=== PATIENT | female | born 1980 | race Hispanic/Latino ===

== ENCOUNTER 2023-10-09 23:39 | Inpatient (IN) | payer MEDICAID, SELFPAY ==
[2023-10-09 12:20] VITALS: BP 135/83; BMI 44.7
[2023-10-09 12:49] LABS: HCG, Serum Qualitative Screen Negative
[2023-10-09 12:51] LABS: ALT (SGPT) 11 U/L (0-35); AST (SGOT) 17 U/L (14-36); Albumin 3.8 g/dl (3.5-5.0); Alkaline Phosphatase 74 U/L (38-126); Blood Urea Nitrogen 11 mg/dl (7-17); Calcium 9.3 mg/dl (8.4-10.2); Carbon Dioxide 26 mmol/L (22-30); Chloride 105 mmol/L (98-107); Estimated Creatinine Clearance > 125 ml/min; Glucose 106 mg/dl (70-99); Lipase 89 U/L (23-300); Potassium 3.6 mmol/L (3.5-5.1); Sodium 138 mmol/L (135-145); Total Bilirubin 0.8 mg/dl (0.2-1.3); Total Protein 7.3 g/dl (6.3-8.2); eGFR > 60.00
[2023-10-09 12:55] LABS: % Basophils 0.5 % (0-2); % Eosinophils 0.8 % (0-6); % Immature Granulocytes 0.4 % (0-0.5); % Lymphocytes 19.7 % (20.5-51.1); % Neutrophils 71.6 % (42.2-75.2); Absolute Eosinophils 0.1 10^3/uL (0-0.7); Absolute Lymphocytes 1.6 10^3/uL (1.2-3.4); Absolute Monocytes 0.6 10^3/uL (0.1-0.6); Absolute Neutrophils 5.9 10^3/uL (1.4-6.5); Hematocrit 31.1 % (37.0-47.0); Hemoglobin 9.5 g/dL (12.0-16.0); Mean Corp Hgb Conc. 30.5 g/dL (33.0-37.0); Mean Corpuscular Hgb 20.7 pg (27.0-31.0); Mean Corpuscular Volume 67.8 fL (81.0-99.0); Nucleated Red Blood Cells % 0 %; Platelet Count 325 10^3/uL (130-400); Red Blood Cell Count 4.59 10^6/uL (4.20-5.40); Red Cell Dist. Width 32.3 % (11.5-14.5); White Blood Cell Count 8.2 10^3/uL (4.8-10.8)
[2023-10-09 12:58] LABS: Anisocytosis Slight; Microcytosis Slight; Normal RBC Morphology No; Target Cells 1+
--- NOTE | 2023-10-09 14:28 | ED.GENMED ---
History of Present Illness
General
Chief Complaint: Abdominal Pain
Source: patient
Exam Limitations: none
Time Seen by Provider: 10/09/23 14:18
Nursing documentation reviewed up to this point in time: agreed with
History of Present Illness
History of Present Illness:
Patient to ED with LLQ abdominal pain. Pain started this AM. Denies fever/chills, n/v/d. Last BM 2 days ago. States she takes oral iron for anemia and has had constipation in the past. This feels different. Brought to ED by family for eval.
Past History
Past History
ED Past Medical History: Other (anemia)
ED Past Surgical History: Cholecystectomy and
Review of Systems
Review of Systems
Allergies reviewed?: Yes
All Other Systems: ROS reviewed and negative except as documented in HPI and ROS
Constitutional: Reports no symptoms
EENT: Reports no symptoms
Respiratory: Reports no symptoms
Cardiac: Reports no symptoms
ABD/GI: Reports abdominal pain (LLQ)
: Reports no symptoms
Musculoskeletal: Reports no symptoms
Skin: Reports no symptoms
Neurological: Reports no symptoms
Psychiatric: Reports no symptoms
Phy Exam
General Physical Exam
General Presentation: well appearing and mild distress
General age: appears stated age
General Skin: warm and dry
General Habitus: normal
General Mental: alert
Gastrointestinal Exam
Gastrointestinal Exam: normal bowel sounds, soft and no pulsatile mass
Palpation: left upper quadrant: No tenderness, left lower quadrant: Moderate tenderness, right upper quadrant: No tenderness and right lower quadrant: No tenderness
Musculoskeletal Exam
Musculoskeletal Exam: full ROM
Skin Exam
Skin Exam: normal color, warm/dry and no rash
Psychiatric Exam
Psychiatric Exam: normal mood/affect
Course
Orders/Labs/Results
Orders:
Orders
10/09/23 12:23
Test Result ONCE
10/09/23 12:26
Complete Blood Count/With Diff Urgent
Comprehensive Metabolic Panel Urgent
HCG, Serum Qualitative Screen Urgent
Comment: Notify provider if positive test present
Lipase Urgent
10/09/23 14:26
Obstruct Series W/PA Chest [CR Obstruct Series W/pa Chest] Urgent
Comment:
Reason For Exam: LLQ pain
10/09/23 15:04
Urinalysis Reflex To Culture Urgent
Date Specimen was Collected: 10/09/23
Time Specimen was Collected: 14:35
Urine Microscopic Reflex Cult Urgent
Urine Culture Urgent
ISABELLE Source: U
Specimen Description:
Date Specimen was Collected: 10/09/23
Time Specimen was Collected: 14:35
10/09/23 15:25
CT Abd/pel W Iv And Oral Contr Urgent
Comment:
Reason For Exam: LLQ pain
Iohexol [Omnipaque] See Protocol PO NOW STA
10/09/23 15:26
0.9% Sodium Chloride 1000 ml [Nss] 1,000 ml IV BOLUS
10/09/23 18:41
Pelvis (Non Obstetric) US [US Pelvis Only (non-obstetric)] Urgent
Comment:
Reason For Exam: LLQ pain, adenexal mass
10/09/23 18:45
Ondansetron Injectable [Zofran] 4 mg .ROUTE .STK-MED ONE
10/09/23 18:46
HYDROmorphone [Dilaudid] 0.5 mg .ROUTE .STK-MED ONE
HYDROmorphone [Dilaudid] 0.5 mg IV NOW STA
Ondansetron Injectable [Zofran] 4 mg IV NOW STA
10/09/23 21:16
CA 125 Urgent
CA 19-9 [S] Urgent
CEA Urgent
10/09/23 21:30
Complete Blood Count/With Diff Urgent
10/09/23 22:49
Piperacillin/Tazo 3.375 Gram [Zosyn] 3.375 gram in 50 ml IV NOW
10/09/23 22:55
ELECTROPHYSIOLOGY NURSE PRACTITIONER CONSULT Urgent
Consulting Provider: Anne Marie Jang
Was physician already notified: Yes
10/09/23 23:18
Type+Screen Urgent
10/09/23 23:35
Admit/Transfer Patient As Directed
Co-Sign Provider:
Level of Care: Inpatient admission
Assign to:: Medical/Surgical
Physician / Group: eladia
Diagnosis: ovarian mass
Reason for Hospitalization: ovarian mass
Expected length of stay greater than two midnights?: Yes
ELOS- Estimated Length of Stay in days: 2
I certify the patient meets the requirements for IP care: Yes
Code Status As Directed
Resuscitation Status: Full Code
10/10/23 00:14
Acetaminophen [Tylenol] 650 mg PO Q4HPRN PRN
HYDROmorphone [Dilaudid] 0.5 mg IV Q4HPRN PRN
10/10/23 00:14
Activity As Directed
Activity Level: As Tolerated
Vital Signs As Directed
Frequency: Per unit guidelines
DX Deep Vein Thrombosis Video Routine
10/10/23 05:59
Complete Blood Count/With Diff IN AM
Comprehensive Metabolic Panel IN AM
Abnormal Lab Results
10/09/23 10/09/23 10/09/23
12:26 15:04 21:30
RBC 3.64 L 10^6/uL
(4.20-5.40)
Hgb 9.5 L g/dL 7.5 L D g/dL
(12.0-16.0) (12.0-16.0)
Hct 31.1 L % 23.9 L %
(37.0-47.0) (37.0-47.0)
MCV 67.8 L fL 65.7 L fL
(81.0-99.0) (81.0-99.0)
MCH 20.7 L pg 20.6 L pg
(27.0-31.0) (27.0-31.0)
MCHC 30.5 L g/dL 31.4 L g/dL
(33.0-37.0) (33.0-37.0)
RDW 32.3 H % 32.3 H %
(11.5-14.5) (11.5-14.5)
Lymphocytes % 19.7 L %
(20.5-51.1)
Glucose 106 H mg/dl
(70-99)
Ur Occult Blood Reflex 4+ A
(Negative)
Leukocyte Esterase Rfl 2+ A
(Negative)
Urine RBC >100 A /HPF
(0-2)
Urine WBC (Reflex) 21-25 A /HPF
(0-5)
Urine Bacteria (Reflex) Few A
(Negative)
Urine Albumin (Reflex) 1+ A
(Neg - Trace)
Crossmatch IS Only
10/09/23
23:18
RBC
Hgb
Hct
MCV
MCH
MCHC
RDW
Lymphocytes %
Glucose
Ur Occult Blood Reflex
Leukocyte Esterase Rfl
Urine RBC
Urine WBC (Reflex)
Urine Bacteria (Reflex)
Urine Albumin (Reflex)
Crossmatch IS Only See Detail
10/09/23 21:30
10/09/23 12:26
Vital Signs
Initial and Last Documented VS:
Initial Vital Signs
Temp Pulse Resp BP Pulse Ox
99.2 F 80 16 135/83 98
10/09/23 12:20 10/09/23 12:20 10/09/23 12:20 10/09/23 12:20 10/09/23 12:20
Last Documented Vital Signs
Temp Pulse Resp BP Pulse Ox
97.0 F 75 20 128/73 95
10/12/23 19:50 10/12/23 19:48 10/12/23 19:48 10/12/23 19:48 10/12/23 19:48
*Radiology
Radiology exam reviewed: radiology read reviewed (Large complex left adnexal mass measuring 10 cm AP by 8.6 cm transverse by 10 cm craniocaudal. There is a peripheral thickened soft tissue rim measuring approximately 1.5 cm in thickness, with
slightly complex central region of diminished attenuation measuring approximately 9.7 cm. Mild to moderate)
*Pulse Oximetry
Patient hypoxic: no
*Critical Care Note
Total Time (30-74mins, 75-104mins- exclusive of procedures): Not Applicable
Update Note
Update Note:
CT report reviewed. 'Large complex left adnexal mass measuring 10 cm AP by 8.6 cm transverse by 10 cm craniocaudal. There is a peripheral thickened soft tissue rim measuring approximately 1.5 cm in thickness, with slightly complex central region of
diminished attenuation measuring approximately 9.7 cm. Mild to moderate adjacent and surrounding soft tissue stranding noted. The posterior margin, there are nodular soft tissue structures measuring probably 2.9 cm and 3.1 cm (image 68 series 201
and image 70 series 201). Suspicious for adenopathy.' Will send for US. Discussed CT findings with patient.
US report received: 'Large left ovarian mass measuring 9.1 x 9.8 x 8.1 cm, with complex cystic and/or solid appearing components. Neoplasm to be excluded. Left ovarian blood flow documented without evidence to suggest torsion at this time. Complex
cyst of the right ovary measuring up to 5.7 cm. Right ovarian blood flow documented.No free pelvic fluid.
Dr. Ianieri notified of findings via tiger text, in to see patient. WIll perform pelvic exam, uterine bx bedside. CBC rechecked. Hgb now 7.5. Will admit to hospitalist service.
UA reflecting UTI. IV zosyn given in dept.
ED Attending Note
-
Portions of this chart may have been created with voice recognition software.� Occasional wrong word or��sound alike� substitutions may have occurred due to the inherent limitations of voice recognition software.
Discharge Plan
Departure
Patient Disposition: Admit
Date of Disposition: 10/09/23
Time of Disposition: 22:54
Presentation/result/management discussed w/ accepting MD/DO: Hospitalist
Patient with high blood pressure during this ER visit?: No
Condition: Fair
Covid-19: Not Applicable
Discharge Problem:
Anemia, Adnexal mass, UTI (urinary tract infection)
Interventions
Interventions:
*Risk Screen - Suicide Last Done: 10/09/23 12:20
*General Assessment Last Done: 10/09/23 14:37
*Neglect/Abuse Screening Last Done: 10/09/23 12:20
ED- Fall Risk Assessment Last Done: 10/09/23 16:53
*ED COVID-19 Vaccine History Last Done: 10/09/23 16:53
*Nursing Disposition Last Done: 10/10/23 00:00
MS-Vphpqw-Srluqdcaxt Assessment Last Done: 10/09/23 14:37
Discharge Date and Time
Discharge Date/Time: 10/10/23 00:04
[2023-10-09 14:40] VITALS: BP 131/85
[2023-10-09 15:15] LABS: Urine Albumin 1+ (Neg - Trace); Urine Bilirubin Negative (Negative); Urine Character Very Cloudy (Clear); Urine Color Amber; Urine Glucose Negative (Negative); Urine Ketone Negative (Negative); Urine Leukocyte 2+ (Negative); Urine Nitrite Negative (Negative); Urine Occult Blood 4+ (Negative); Urine Specific Gravity 1.015 (<1.030); Urine Urobilinogen Negative (Neg - 1+)
[2023-10-09] MEDS: OMNIPAQUE 50 ML PO (15:32)
[2023-10-09] MEDS: NSS 1000 IV (15:39)
[2023-10-09 15:45] LABS: Urine Bacteria Few (Negative); Urine Red Blood Cell >100 /HPF (0-2); Urine White Cell 21-25 /HPF (0-5)
[2023-10-09 16:39] VITALS: BP 126/61
[2023-10-09] MEDS: ZOFRAN 4 MG IV (18:47)
[2023-10-09] MEDS: DILAUDID 0.5 MG IV (18:47)
[2023-10-09 18:51] VITALS: BP 119/73
[2023-10-09 21:10] VITALS: BP 119/69
[2023-10-09 21:59] LABS: % Basophils 0.4 % (0-2); % Eosinophils 1.2 % (0-6); % Immature Granulocytes 0.5 % (0-0.5); % Lymphocytes 20.8 % (20.5-51.1); % Monocytes 7.7 % (1.7-9.3); % Neutrophils 69.4 % (42.2-75.2); Absolute Eosinophils 0.1 10^3/uL (0-0.7); Absolute Lymphocytes 1.5 10^3/uL (1.2-3.4); Absolute Monocytes 0.6 10^3/uL (0.1-0.6); Absolute Neutrophils 5.1 10^3/uL (1.4-6.5); Hematocrit 23.9 % (37.0-47.0); Hemoglobin 7.5 g/dL (12.0-16.0); Mean Corp Hgb Conc. 31.4 g/dL (33.0-37.0); Mean Corpuscular Hgb 20.6 pg (27.0-31.0); Mean Corpuscular Volume 65.7 fL (81.0-99.0); Mean Platelet Volume 9.3 fL (7.4-10.4); Nucleated Red Blood Cells % 0 %; Platelet Count 272 10^3/uL (130-400); Red Blood Cell Count 3.64 10^6/uL (4.20-5.40); Red Cell Dist. Width 32.3 % (11.5-14.5); White Blood Cell Count 7.4 10^3/uL (4.8-10.8)
[2023-10-09 22:02] LABS: Anisocytosis 2+; Hypochromasia 3+; Macrocytosis 2+; Microcytosis 1+; Normal RBC Morphology No; Ovalocytes 1+; Tear Drop Red Blood Cells 1+
[2023-10-09 22:10] LABS: CEA 0.99 ng/ml
[2023-10-09 22:19] LABS: CA 125 8.4 U/mL (0-35)
--- NOTE | 2023-10-09 23:41 | HPS.HSE ---
Addendum entered and electronically signed by Marilee Cote MD 10/09/23 23:52:
Gynecology planning on D&C tomorrow for uterine biopsy with plan for eventual surgery. NPO past midnight.
Original Note:
Family Physician
-
Family Physician: * NONE
Chief Complaint
-
abdominal pain
History of Present Illness
43-year-old female past medical history of menorrhagia, anemia, constipation presenting with left lower quadrant abdominal pain which started this morning. She has sometimes had pain like this in the left lower quadrant before but never this bad.
She denies fevers or chills, nausea vomiting or diarrhea. Her last bowel movement 2 days ago.
She has a history of anemia secondary to heavy periods. She is currently undergoing period. She was recently hospitalized at a hospital in [place] in early September where she got 3 units of blood transfusion and iron transfusion for hemoglobin of 5.
She states that after the transfusion her hemoglobin was around 8.
She denies any urinary symptoms, blood in the urine or cloudy urine or increased urinary frequency.
She denies smoking or alcohol use.
Medical History
Past Medical History
Past Medical History: Reports Other (menorrhagia, anemia, constipation)
Past Surgical History: Reports Other ( Cholecystectomy and )
Social History
Tobacco: Non-smoker
Alcohol: None
Drug: None
Family History
Family History: Not pertinent
Allergies / Home Medications
Allergies reflects when Allergies were last updated in [employer]
Home Medications with original date entered in [employer]
Allergy/Medication List:
Allergies
Allergy/AdvReac Type Severity Reaction Status Date / Time
No Known Allergies Allergy Verified 10/09/23 12:22
Home Medications
mupirocin 2 % topical ointment 1 applic topical TID #1 tube 02/08/18
prednisone 10 mg tablet 10 mg PO .TAPER #30 tabs 02/08/18
Review of Systems
-
History Source: Patient
A 12 point ROS was completed and negative except as noted: Yes
Constitutional: Reports No Symptoms
EENT: Reports No Symptoms
Respiratory: Reports No Symptoms
Cardiac: Reports No Symptoms
Abdomen/GI: Reports See HPI
: Reports No Symptoms
Musculoskeletal: Reports No Symptoms
Skin: Reports No Symptoms
Neurological: Reports No Symptoms
Endocrine: Reports No Symptoms
Hematologic/Lymphatic: Reports No Symptoms
Psych: Reports No Symptoms
Physical Exam
Vital Signs
Vital Signs
Temp Pulse Resp BP Pulse Ox
99.2 F 66 16 119/69 98
10/09/23 12:20 10/09/23 21:10 10/09/23 21:10 10/09/23 21:10 10/09/23 21:10
Physical Exam
General: Well Developed, Well Nourished and No Apparent Distress
HEENT: NormoCephalic, Moist mucous membranes and Atraumatic
Respiratory: Clear
Cardiac: S1/S2 and Regular Rhythm; No Murmur or Rub
GI: Soft, Non Tender, Non Distended and Normal Bowel Sounds; No Organomegaly
Rectal: Deferred by Provider
Musculoskeletal: No Clubbing, No Cyanosis and No Edema
Skin: No Rash
Neuro: Nonfocal/grossly intact
Laboratory Results
-
10/09/23 21:30
10/09/23 12:26
Laboratory Results
Total Bilirubin 0.8 mg/dl (0.2-1.3) 10/09/23 12:26
AST 17 U/L (14-36) 10/09/23 12:26
ALT 11 U/L (0-35) 10/09/23 12:26
Alkaline Phosphatase 74 U/L (38-126) 10/09/23 12:26
Lipase 89 U/L (23-300) 10/09/23 12:26
Data Reviewed
-
Lab Data: Labs Reviewed by me
Old Records: Reviewed
Impression/Plan
-
IMPRESSION:
PLAN:
# Large complex left adnexal ovarian cystic/solid mass
-CT scan shows 10 x 8.6 x 10 cm large complex left adnexal mass with mild left hydroureteronephrosis due to possible compression of distal ureter
-Pelvic ultrasound showed left ovarian blood flow intact
-Tylenol, Dilaudid for pain
-SERVICE DISMANTLER consulted
# Complex cyst of right ovary
-5.7 cm
# Mild left hydroureteronephrosis due to possible compression of distal ureter from the adnexal mass
-urology consulted
#UTI
-urine culture
-ceftriaxone
# Acute on chronic microcytic anemia secondary to menorrhagia
-Check iron studies, B12 and folate
-Type and screen sent
Full code
DVT prophylaxis�SCDs
Regular diet
[2023-10-09] MEDS: ZOSYN 50 IV (23:44)
[2023-10-09 23:45] VITALS: BP 122/74
[2023-10-10] VITALS (12 sets, daily range): BP systolic 109–139; BP diastolic 45–81; BMI 44.3
[2023-10-10 01:12] LABS: Iron 54 ug/dl (37-170)
[2023-10-10 01:13] LABS: INR 1.12; PT 14.2 Sec (11.4-14.6)
[2023-10-10 01:14] LABS: APTT 38.5 Sec (23.4-35.0)
[2023-10-10 01:21] LABS: Percent Saturation 20 % (20-50); Total Iron Binding Capacity 259 ug/dl (265-497)
--- NOTE | 2023-10-10 01:27 | CON.MD ---
Consultation - Medical
-
43 yo female with LMP currently, presented to ER today with c/o severe LLQ abdominal pain. Pain first noted this am. Described as left sided, nonradiating. Subsided significantly when came to ER (without any medications). Only received one dose
dilaudid all day today. Took ibuprofen at home without much relief. Describes heavy menses and recent anemia. Had 3 units PRBCs 7/2 when hgb found to be 5/4. Currently taking iron. Reports wearing overnight pad during the day and changing several
times per day. Wears a Depends undergarment at night.
ROS: denies fever, chills, nausea, vomiting, diarrhea, constipation (though last BM 2 days ago which she attributes to iron supplementation). Denies dizziness or lightheadedness.
PMH: anemia, menorrhagia
PSH: lap cholecystectomy, Primary Csection 2007
NKDA
MEds: Iron supplement daily
Sochx: denies tobacco/vaping, alcohol, recreational drug use
Famhx: Mother -gallstones; PGM-cancer ?abdominal /metastatic; Father-colon cancer, cousins-breast cancer, MGM-hysterectomy age 45 fibroids; cousin-fibroids.
[employer] hx: reports last pap 2 yrs ago, Denies abnormal pap. Denies hx fibroids.
VSS afeb
cor regular rate
abd: soft ND, mod tenderness along left pelvic sidewall. No g/r/r/
Spec exam: dark blood in vaginal vault, no clots. Cervix appears and palpates to be smooth. No gross lesions. Uterine size difficult to assess due to body mass.
Pelvic US Uterus 14.4 x 7. x 6.9 cm, endometrium 3mm. Left ovary 11x 9.5 x 10.4 cm with large complex mass 9.1 x 9.8 x8.1 cm with complex cystic and/or solid components. Left ovarian blood flow documented. No free pelvic fluid. Complex cyst right
ovary up to 5.7 cm. Blood flow noted.
CT Abd/pelvis: 2 tiny pulm nodules. Mild left hydroureter. Distal ureter may be compressed by the left adnexal mass. Numerous small retroperitoneal lymph nodes.
Lasrge left complex adnexal mass 10 x 8.6 x 10 cm. There is peripheral thickened soft tissue rim measuring approx 1.5cm. Mild to moderated adjacent and surrounding soft tissue stranding noted. The posterior margin has severeal nodular soft tissue
structures approx 2.9 cm and 3.1 cm. Suspicious adenopathy.
Right ovary 5.6 x 4.3 cm with low attenuation occupying most of the ovary measuring up to 5.3cm. Appearance of cyst with internal septation. No free fluid. Fluid distension in vaginal cancal and possible slight prolapse of cervix. Findings
suggestive of left sidewall adenopathy.
Labs: WBC 7.4 hgb 9.5 -> 7.5 today plt 272
HCG negative
CA125 8.4
CEA 0.99
CA 19-9 pending.
iron 54
TIBC 259
B12 and folate pending.
Assessment:
1. menorrhagia
2. anemia related to chronic blood loss (heavy menses) s/p recent transfusion 3 UPRBCs.
3. Abnormal uterine bleeding: etiologies include adenomyosis, anovulatory bleeding, fibroids(none seen on US/CT ), polyp, endometrial hyperplasia, endometrial intraepithelial neoplasia, endometrial cancer.
4.Pelvic cystic and solid masses- possible tuboovarian abscess (less likely given normal WBC, afebrile), neoplasm. Normal CA125 is reassuring. Torsion not clinically expected given patient comfort and flow ot ovaries seen on US and no evidence of
torsion on CT.
5. Pelvic LLQ abdominal pain-related to pelvic mass
6. hydroureter/nephrosis left- likely from compression from left adnexal mass. Possible left sidewall adenopathy. Consider urology input.
7. Class 3 obesity
8. UTI
Plan:
1. Recommend Exam under anesthesia, pap, Dilation and curettage tomorrow. Reviewed rationale for procedure, risks complications which include but are not limited to infection , bleeding, injury to uterus or other organs, structures outside the
uterus, possible need for additional procedures, prolonged recovery. Blood transfusion and its inherent risks reviewed. Questions answered to her satisfaction and informed consent obtained.
2. Serial H/h and discussed possible need for transfusion if continues to drop hgb due to heavy menses.
3.Abx started for UTI. ALthough I feel TOA is less likely due to normal WBC and afebrile state, would recommend broader spectrum abx to cover for this until more data available.
4. Patient ultimately will need to have oopherectomy (unilat vs bilat) and hysterectomy for evaluation of adnexal mass and also management of her heavy bleeding. Plan to have her seen by glass lathe operator oncology. Pt desires to remain in our health system for
completion of her care. I reviewed case with Dr. Shields, glass lathe operator oncology. He is currently out of town but plans to see patient when back in the next few days.
5. Pain mgmt prn
Time consultation over 60 min.
[2023-10-10 02:19] LABS: Folate 8.8 ng/ml (2.76-20); Vitamin B12 364 pg/ml (239-931)
[2023-10-10] MEDS: ZOSYN 50 IV ×3 (05:43→23:54)
[2023-10-10 07:27] LABS: % Basophils 0.5 % (0-2); % Eosinophils 1.2 % (0-6); % Immature Granulocytes 0.5 % (0-0.5); % Lymphocytes 19.2 % (20.5-51.1); % Monocytes 6.8 % (1.7-9.3); % Neutrophils 71.8 % (42.2-75.2); Absolute Eosinophils 0.1 10^3/uL (0-0.7); Absolute Lymphocytes 1.6 10^3/uL (1.2-3.4); Absolute Monocytes 0.6 10^3/uL (0.1-0.6); Absolute Neutrophils 5.9 10^3/uL (1.4-6.5); Hematocrit 27.6 % (37.0-47.0); Hemoglobin 8.5 g/dL (12.0-16.0); Mean Corp Hgb Conc. 30.8 g/dL (33.0-37.0); Mean Corpuscular Hgb 20.5 pg (27.0-31.0); Mean Corpuscular Volume 66.7 fL (81.0-99.0); Nucleated Red Blood Cells % 0 %; Platelet Count 312 10^3/uL (130-400); Red Blood Cell Count 4.14 10^6/uL (4.20-5.40); Red Cell Dist. Width 32.6 % (11.5-14.5); White Blood Cell Count 8.2 10^3/uL (4.8-10.8)
[2023-10-10 07:45] LABS: ALT (SGPT) 10 U/L (0-35); AST (SGOT) 15 U/L (14-36); Albumin 3.4 g/dl (3.5-5.0); Alkaline Phosphatase 75 U/L (38-126); Blood Urea Nitrogen 10 mg/dl (7-17); Calcium 8.8 mg/dl (8.4-10.2); Carbon Dioxide 27 mmol/L (22-30); Chloride 103 mmol/L (98-107); Estimated Creatinine Clearance > 125 ml/min; Glucose 90 mg/dl (70-99); Potassium 3.7 mmol/L (3.5-5.1); Sodium 138 mmol/L (135-145); Total Bilirubin 0.8 mg/dl (0.2-1.3); Total Protein 6.7 g/dl (6.3-8.2); eGFR > 60.00
--- NOTE | 2023-10-10 07:50 | W.PN.HOSP.TC ---
Today's Communication/Plan
-
see bold
Assessment / Plan
Assessment / Plan
Pt seen and examined with nurse Lin Newman present at bedside:
Gen: NAD, AAOx3.
Eyes: EOMI, PERRLA, no scleral icterus.
Neck: supple.
CV: RRR, +S1/S2, no m/r/g.
Resp: CTAB, no rales, wheezes, or rhonchi.
Abd: +BS, soft, L-sided TTP, ND
Skin: No rashes.
Neuro: CN 2-12 intact, non-focal.
Psych: Normal mood and affect.
Large complex left adnexal ovarian cystic/solid mass
-CT scan shows 10 x 8.6 x 10 cm large complex left adnexal mass with mild left hydroureteronephrosis due to possible compression of distal ureter
-Pelvic ultrasound showed left ovarian blood flow intact
-Tylenol, Dilaudid for pain
-FERMENTATION MANAGER following, plan for D&C with uterine biopsy today
Other problems:
Possible UTI: cont Rocephin, follow UCx
Complex 5.7cm cyst of right ovary
Mild left hydroureteronephrosis due to possible compression of distal ureter from the adnexal mass: c/s Uro
Acute on chronic microcytic anemia secondary to menorrhagia: Fe studies unremarkable
Morbid obesity due to excess calories
FULL/SCDs
Anticipated Discharge: 24 - 48 hours
Subjective/Interval History
-
Date of Service: October 10, 2023
Denies abd pain. Some vaginal bleeding O/N but pt is having her menses.
Objective Data
-
Labs:
Laboratory Results
10/09/23 10/09/23 10/10/23
21:30 23:18 00:47
WBC 7.4
Hgb 7.5 L D
Hct 23.9 L
Plt Count 272
PT Cancelled 14.2
INR Cancelled 1.12
APTT Cancelled 38.5 H
Sodium
Potassium
Chloride
Carbon Dioxide
BUN
Creatinine
Glucose
Calcium
Total Bilirubin
AST
ALT
Alkaline Phosphatase
10/10/23
05:59
WBC 8.2
Hgb 8.5 L
Hct 27.6 L
Plt Count 312
PT
INR
APTT
Sodium 138
Potassium 3.7
Chloride 103
Carbon Dioxide 27
BUN 10
Creatinine 0.6
Glucose 90
Calcium 8.8
Total Bilirubin 0.8
AST 15
ALT 10
Alkaline Phosphatase 75
Vital Signs:
Vital Signs
Temp Pulse Resp BP Pulse Ox
98.1 F 68 18 115/55 100
10/10/23 07:15 10/10/23 07:15 10/10/23 07:15 10/10/23 07:15 10/10/23 07:15
I&O
10/09/23 10/10/23 10/11/23
06:59 06:59 06:59
Intake Total 410 / 410
Balance 410 / 410
--- NOTE | 2023-10-10 10:38 | W.PN.URO.CBU ---
Today's Communication / Plan
-
Await NEWS PHOTOGRAPHER intervention
No intervention warranted
Await urine C&S
Assessment / Plan
-
Left hydroureteronephrosis likely secondary to left ovarian mass
Diagnosis
-
Date of Service: October 10, 2023
-
Patient Diagnosis:
Possible UTI
Mild left hydroureteronephrosis
Left adnexal mass
Menorrhagia
Subjective
-
No dysurtia, gross hematuria or left CVAT
Objective
-
Vital Signs
Temp Pulse Resp BP Pulse Ox
98.1 F 68 18 115/55 100
10/10/23 07:15 10/10/23 07:15 10/10/23 07:15 10/10/23 07:15 10/10/23 07:15
Intake and Output
10/09/23 10/10/23 10/11/23
06:59 06:59 06:59
Intake Total 410 / 410
Balance 410 / 410
Intake:
Oral fluids 360 / 360
IV piggybacks 50 / 50
Laboratory Results
10/10/23 05:59
10/10/23 05:59
Review of Systems
-
Constitutional: Fatigue
Respiratory: No Symptoms
Cardiac: No Symptoms
Abdomen/GI: Abdominal Pain
: No Symptoms
Neurological: No Symptoms
Physical Exam
-
General - obese, no acute distress
Abdomen -no CVAT
Counseling
-
Will follow
--- NOTE | 2023-10-10 10:40 | W.PN.URO.CBU ---
Today's Communication / Plan
-
Await urine culture results
No role for left JJ stent placement at this time as patient is afebrile, comfortable and obstruction appears incomplete
Assessment / Plan
-
Possible UTI
Mild left hydroureteronephrosis likely secondary to partial external obstruction from left adnexal mass
Diagnosis
-
Date of Service: October 10, 2023
-
Patient Diagnosis:
Possible UTI
Mild left hydroureteronephrosis
Left adnexal mass
Menorrhagia
Subjective
-
c/o modest LLQ discomfort
No dysuria or frequency
No left flank pain
No gross hematuria
Objective
-
Vital Signs
Temp Pulse Resp BP Pulse Ox
98.1 F 68 18 115/55 100
10/10/23 07:15 10/10/23 07:15 10/10/23 07:15 10/10/23 07:15 10/10/23 07:15
Intake and Output
10/09/23 10/10/23 10/11/23
06:59 06:59 06:59
Intake Total 410 / 410
Balance 410 / 410
Intake:
Oral fluids 360 / 360
IV piggybacks 50 / 50
Laboratory Results
10/10/23 05:59
10/10/23 05:59
Review of Systems
-
Constitutional: Fatigue
Respiratory: No Symptoms
Cardiac: No Symptoms
Abdomen/GI: Abdominal Pain
: No Symptoms
Neurological: No Symptoms
Physical Exam
-
General - obese, no acute distress
Abdomen - soft, LLQ tenderness extending a bit across midline
No left flank pain
Counseling
-
Await urine culture results
Will follow
--- NOTE | 2023-10-10 11:18 | W.PN.UPDATE ---
Update Note
Progress Note Update
Attempted to see patient twice this AM but she has been down in MRI. Will return to see her before the D&C.
GynOnc consult placed.
--- NOTE | 2023-10-10 12:39 | W.PN.GYNONC ---
Today's Communication
-
awaiting results of testing and will review case with Dr Jeovany Shields
Impression / Plan
-
1- UTI- waiting culture report continue current plan
2- bilateral ovarian cyst and enlarged uterus- menorrhagia,anemia- awaiting results of D&C and MRI, discussed possible surgery to remove ovarian masses and hysterectomy
Subjective / Interval History
-
43 yr old female who came to the ER yesterday for sharp left sided pain during her menes. She states she has had the pain before but this time it was stronger and and more intense. She states pain has improved since being admitted. She
states menes started 10/05 and was very heavy is haz tech now. She says she is bleeding more frequently but usually will last 5 to 7 days first couple of days very heavy. She went to the ER on 09/14 for heavy bleeding and was given 3 units of blood for
a hemoglobin of 5. At that time u/s did show an 11 cm left ovarian cyst and 7 cm right ovarian cyst. She was to have an appointment on 10/18 with her senior java ui developer in [place] to follow up that ER visit. She is currently here visiting family. She states long
hx of heavy menes 11 to 12 years ago did have a blood transfer for heavy bleeding. no hx of ovarian cyst
PMH- anemia
surgical- Cholecystectomy
c/section
Objective Data
-
Lab Results:
10/10/23 05:59
10/10/23 05:59
Physical Exam
Vital Signs / I&O
Vitals
Temp Pulse Resp BP Pulse Ox
98.1 F 68 18 115/55 100
10/10/23 07:15 10/10/23 07:15 10/10/23 07:15 10/10/23 07:15 10/10/23 07:15
I&O
10/08/23 10/09/23 10/10/23 10/11/23
06:59 06:59 06:59 06:59
Intake Total 410 / 410
Balance 410 / 410
Physical Exam
VSS
abdomen soft no masses palpated but difficult exam due to BMI, llq tenderness no rebound
pelvic exam deferred patient scheduled for exam under anesthesia and D&C today
General: Well Developed and No Apparent Distress
Data Reviewed
-
CT Scan: Report Reviewed by Me and Discussed with Patient
Ultrasound: Report Reviewed by Me (9x9.8x8.1cm left ovarian complex cyst, 5.7cm complex right ovarian cyst, uterus- 14 cm with normal endometrial lining) and Discussed with Patient
--- NOTE | 2023-10-10 13:43 | W.SUR.PREOP ---
Pre-Operative Surgical Note
-
I have examined this patient prior to the performance of the scheduled procedure.
The patient's condition is unchanged from the time of the current History and
Physical and the patient is able to undergo the scheduled procedure.
--- NOTE | 2023-10-10 13:43 | W.IMMPOSTOP ---
Surgical Immed Post Op Note
-
Primary Surgeon:Dr. Tafoya
Assisting Surgeon: n/a
Pre-op Diagnosis: Abnormal Uterine bleeding, Anemia, adnexal mass
Post-op Diagnosis: Same
Procedure Performed: EUA, D&C
Anesthesia Type: LMA
Specimen / Cultures: 1. EMC 2. Pap smear
Estimated Blood Loss: 5
Complications: None
Operative Findings: 1. Exam limited due to morbid obesity, cervix and vagina without nodularity, unable to adequately assess uterine fundus or adnexa on bimanual exam but no masses palpable through the vagina. 2. D&C also difficult due to habitus,
and limited ability to place in trendelenburg
[2023-10-10] MEDS: ZOSYN IV (14:01)
--- NOTE | 2023-10-10 19:04 | W.PN.OBG.DWH ---
Today's Communication / Plan
-
await MRI, pathology and CA 19-9 results
regular diet
await neuro intensivist physician onc consult
Assessment/Plan
-
43yo HD#2 with Anemia, AUB & adnexal Mass
1. AUB/Anemia- s/p D&C and Pap today, concern that procedure was technically difficult and sample may be suboptimal. await pathology report.
-Hgb stable and patient without symptoms of anemia. continue to trend
2. Pelvic Mass
-CA 125 and CEA both normal, CA 19-9 pending
-Pelvic MRI performed, report pending
-[facility] ONC consulted to weigh in on management, likely surgical intervention for this however will need to determine the best timing.
- possible TOA, will continue Zosyn, though suspicion for this is low
3. Left hydroureteronephrosis
-Ucx- mixed nicolás
-s/p Urology consult, No indication for stent placement
4. Regular diet
5. pain control prn
Subjective Data
-
pain controlled, no cramping/pain since the procedure, minimal bleeding. Tolerated food after her procedure. Has been OOB. NO cp/sob/n/v/f/c
Objective Data
-
Laboratory Results
10/10/23 05:59
10/10/23 05:59
Vital Signs
Temp Pulse Resp BP Pulse Ox
97.7 F 66 18 125/76 95
10/10/23 14:16 10/10/23 14:16 10/10/23 14:16 10/10/23 14:16 10/10/23 14:16
Gen: nad aaox3
Abd: soft, non tender
Ext: no LE ttp
[2023-10-11] VITALS (8 sets, daily range): BP systolic 120–160; BP diastolic 56–94; BMI 43.0
[2023-10-11] MEDS: ZOSYN 50 IV (05:23)
--- NOTE | 2023-10-11 09:14 | W.PN.GYNONC ---
Today's Communication
-
see plan above
Impression / Plan
-
#1 left lower quadrant pain, left lower quadrant mass. Overall appearance is complex but MRI suggests presence of endometrioma with resulting left hydronephrosis. Possibility of a malignant neoplasm cannot be excluded. Tubo-ovarian abscess is
less likely because of absence of fever and leukocytosis.
#2 right ovarian cyst also concerning for smaller size endometrioma
#3 abnormal uterine bleeding, etiology unclear, D&C was performed yesterday pathology pending suspect excess endogenous estrogen secondary to morbid obesity, patient is at risk because of history of infertility and obesity for endometrial
hyperplasia and cancer although no obvious evidence of that on imaging.
#4 anemia suspect iron deficiency secondary to chronic blood loss, status post transfusion earlier in September and now transfusion during this admission again. B12 and folic acid are normal. Ferritin is reasonably good for somebody with this degree of
acute bleeding, TIBC low. Currently stable at 8.5
Recommendations:
Patient needs to undergo definitive management and require surgery. I spoke at length with the patient and her mother regarding consideration of surgery here versus returning back to [place] and I can certainly make referral to physicians in
[place] for her care. They are insistent to have her care provided. And they feel that she has adequate support locally to undergo treatment.
Plan:
Will plan to add patient to the OR schedule for tomorrow Thursday, October 11. communicated to
She needs to be n.p.o. after midnight today
If her hemoglobin is below 9 I recommend transfusion 1 more unit
Obtain EKG
Proceed with Fleet enema x2
Plan of surgery will be robotic exploration of abdomen with laparoscopy, total laparoscopic hysterectomy, left salpingo-oophorectomy, attempted preservation of right ovary with right salpingectomy and right ovarian cystectomy. Frozen section will
be obtained from the left tube and ovary and if malignancy is identified right oophorectomy will be completed. Patient will need to undergo additional staging procedures to include but not limited to pelvic and aortic lymph node dissection,
multiple peritoneal biopsies, omentectomy possible bowel resection. She also understands that conversion to laparotomy is possible.
Risk of surgery including infection bleeding injury to adjacent organs DVT pulmonary embolism and cardiovascular complications were discussed and reviewed. She also understands that she needs postoperative follow-up typically at 2 and 6 weeks with
possible need for additional adjuvant treatment depending on the final pathology results.
Subjective / Interval History
-
43 yr old female LMP 10/06/2023 presented to the ER 10/08 for sharp left sided pain during her menses. she lives in [place], [place], here with her mother staying at her aunt house for a few weeks. She states she has had the pain before but this
time it was stronger and and more intense. Her pain has improved since being admitted. She is bleeding more frequently but usually will last 5 to 7 days first couple of days very heavy. She actually went to the ER on 09/14 for heavy bleeding and was
given 3 units of blood for a hemoglobin of 5. has an upcoming appointment with a bobbin inspector in early October. has had a hard time getting an appointment. she has not sen a bobbin inspector for 3 years.
She states long hx of heavy menses 11 to 12 years ago, apparently had a difficult time getting and despite not being on any contraception over the last few years she has not become .
Past surgical history is significant for cholecystectomy and
Past medical history significant for morbid obesity and significant weight gain over the last couple of years, hypertension
Family history significant for paternal grandmother with carcinomatosis primary cancer is unclear, her father has colon cancer undergoing chemotherapy
Patient was a tobacco user but quit 1 year ago, she does not currently drink alcohol. She denies any drug or marijuana use
She has never had a colonoscopy and does not report any alterations in her bowel symptoms
Patient has had a mammography 2 years ago which was normal
Yesterday she underwent a dilation and curettage and exam under anesthesia. I spoke personally to Dr. Brandon, cervix is grossly within normal limits. There is no obvious abnormalities involving the vagina or on pelvic exam. Contours of the uterus
and mass were difficult to evaluate because of body habitus. The curettage did not reveal obvious abnormal tissue pending final pathology.
Patient also did undergo an MRI of the pelvis to better identify abnormalities that were seen on CT scan:
ABDOMEN MRI
1. MODERATE LEFT HYDROURETERONEPHROSIS secondary to a distal left ureteral obstruction caused by a large left adnexal mass.
2. Mild retroperitoneal lymphadenopathy.
3. Small hiatal hernia.
4. Mild hepatomegaly.
5. Previous cholecystectomy.
PELVIS MRI:
1. LARGE 9.8 cm CENTRALLY CYSTIC LEFT ADNEXAL MASS with a thick surrounding enhancing soft tissue rim. Diagnostic possibilities are (1) a LARGE LEFT OVARIAN ENDOMETRIOMA, (2) a left tubo-ovarian abscess, or (3) a left ovarian epithelial neoplasm.
2. 6 cm septated cyst in the right ovary.
3. Small amount of peritoneal fluid in the pelvis.
4. Mild pelvic and retroperitoneal lymphadenopathy.
5. Complex nabothian cysts in the cervix.
Patient reports that currently her pain is markedly improved unless somebody is examining her and placing significant pressure in the left lower quadrant. She had a bowel movement this morning. She does not describe any nausea or vomiting.
Objective Data
-
Lab Results:
10/10/23 05:59
10/10/23 05:59
Physical Exam
Vital Signs / I&O
Vitals
Temp Pulse Resp BP Pulse Ox
98.2 F 54 18 129/60 95
10/11/23 07:15 10/11/23 07:15 10/11/23 07:15 10/11/23 07:15 10/11/23 07:15
I&O
10/09/23 10/10/23 10/11/23 10/12/23
06:59 06:59 06:59 06:59
Intake Total 410 / 410 0 / 1790
Balance 410 / 410 1789 / 1789
Physical Exam
General: Well Developed, Well Nourished and Comfortable
HEENT: Normocephalic and Moist Mucous Membranes
Respiratory: Clear and Non Labored Respirations
Cardiac: S1/S2 and Regular Rhythm
GI: Soft, Normal Bowel Sounds, Tender (with palpation LLQ), No Hepatosplenomegaly and Other (obese, no fluid wave)
Vagina: Normal Mucosa
Cervix: Normal
Uterus: Enlarged
Adnexa: Abnormal (large mass, fullness and tender LLQ)
Rectal: No Palpable Mass
Neuro: Awake, Alert, Oriented and AO x 3
Hematologic/Lymphatic: No Lymphadenopathy
Psych: Calm and Intact Judgement
Data Reviewed
-
Total Time Spent with Patient (in minutes): 45
Diagnostic Radiology: Image personally visualized and interpreted
CT Scan: Image personally visualized and interpreted
Ultrasound: Image personally visualized and interpreted
MRI: Image personally visualized and interpreted
Medical Tests (Nuc Med, Echo, EKG etc): Image personally visualized and interpreted
--- NOTE | 2023-10-11 09:38 | W.PN.HOSP.TC ---
Today's Communication/Plan
-
see bold
Assessment / Plan
Assessment / Plan
Pt seen and examined with nurse Lin Newman present at bedside:
Gen: NAD, AAOx3.
Eyes: EOMI, PERRLA, no scleral icterus.
Neck: supple.
CV: remains RRR, +S1/S2, no m/r/g.
Resp: remains CTAB, no rales, wheezes, or rhonchi.
Abd: +BS, soft, L-sided TTP with guarding, ND
Skin: No rashes.
Neuro: CN 2-12 intact, non-focal.
Psych: Normal mood and affect.
MRI abd/pelvis:
ABDOMEN MRI:
1. MODERATE LEFT HYDROURETERONEPHROSIS secondary to a distal left ureteral obstruction caused by a large left adnexal mass.
2. Mild retroperitoneal lymphadenopathy.
3. Small hiatal hernia.
4. Mild hepatomegaly.
5. Previous cholecystectomy.
PELVIS MRI:
1. LARGE 9.8 cm CENTRALLY CYSTIC LEFT ADNEXAL MASS with a thick surrounding enhancing soft tissue rim. Diagnostic possibilities are (1) a LARGE LEFT OVARIAN ENDOMETRIOMA, (2) a left tubo-ovarian abscess, or (3) a left ovarian epithelial neoplasm.
2. 6 cm septated cyst in the right ovary.
3. Small amount of peritoneal fluid in the pelvis.
4. Mild pelvic and retroperitoneal lymphadenopathy.
5. Complex nabothian cysts in the cervix.
Large complex left adnexal ovarian cystic/solid mass:
-Imaging above notable for moderate left hydroureteronephrosis due to distal left ureteral obstruction caused by large left adnexal mass, mild retroperitoneal lymphadenopathy, large 9.8 cm centrally cystic left adnexal mass with thick surrounding
enhancing soft tissue rim.
-Pelvic ultrasound showed left ovarian blood flow intact
-Tylenol, Dilaudid for pain
-ASSOCIATE PROFESSOR OF RADIOLOGY following
-s/p 10/10/23 EUA and D&C. Note the procedure was technically difficult and samples taken may be suboptimal.
-CA 125 and CEA normal
-follow CA 19-9
-ASSOCIATE PROFESSOR OF RADIOLOGY-ONC following. Case discussed with Dr. Shields. For OR tomorrow. Pt is medically optimized for the OR as benefit greatly outweighs risk at this time.
-case discussed with Dr. Brandon.
Other problems:
UCx with 50,000 CFU mixed nicolás, likely contaminated. Afebrile, no leukocytosis. Has been on Zosyn. Will stop Zosyn and observe (no UTI at this point). Also, as per discussion with Dr. Brandon, suspicion for tubo-ovarian abscess is low.
Complex 5.7cm cyst of right ovary
Mild left hydroureteronephrosis due to possible compression of distal ureter from the adnexal mass: no acute urological intervention needed as per Dr. Soto.
Acute on chronic microcytic anemia secondary to menorrhagia: Fe studies unremarkable
Morbid obesity due to excess calories
FULL/SCDs
Total time spent on today's encounter was 50 minutes which included time spent in counseling the patient/family regarding diagnosis and treatment plan as listed above, goals of care, and symptom management. Case was discussed with nursing staff,
specialists, and care coordinators/case management. All labs and imaging personally reviewed by me. Remainder the time spent in detailed review of previous records, lab data, imaging, and other medical provider documentation.
Anticipated Discharge: 24 - 48 hours
Subjective/Interval History
-
Date of Service: October 11, 2023
No new complaints.
Objective Data
-
Vital Signs:
Vital Signs
Temp Pulse Resp BP Pulse Ox
98.2 F 54 18 129/60 95
10/11/23 07:15 10/11/23 07:15 10/11/23 07:15 10/11/23 07:15 10/11/23 07:15
I&O
10/10/23 10/11/23 10/12/23
06:59 06:59 06:59
Intake Total 410 / 410 1789 / 1789
Balance 410 / 410 1789 / 1789
--- NOTE | 2023-10-11 10:25 | W.PN.URO.CBU ---
Today's Communication / Plan
-
No interveion warranted
Planned left oophorectomy tomorrow
Assessment / Plan
-
Mild left hydroureteronephrosis likely secondary to partial external obstruction from left adnexal mass
No UTI or fever
Diagnosis
-
Date of Service: October 11, 2023
-
Patient Diagnosis:
Mild left hydroureteronephrosis
Left adnexal mass
Menorrhagia
No evidence of UTI
Subjective
-
Comfortable
No voiding dysfunction
No left CVAT
Objective
-
Vital Signs
Temp Pulse Resp BP Pulse Ox
98.2 F 54 18 129/60 95
10/11/23 07:15 10/11/23 07:15 10/11/23 07:15 10/11/23 07:15 10/11/23 07:15
Intake and Output
10/10/23 10/11/23 10/12/23
06:59 06:59 06:59
Intake Total 410 / 410 1790 / 1790
Balance 410 / 410 1790 / 1790
Intake:
Oral fluids 360 / 360 1440 / 1440
IV fluids (Total) 150 / 150
Normosol 50 / 50
IV piggybacks 50 / 50 200 / 200
Other:
Number of approximated MODERATE 3
amounts of urine
How many times incontinent 2
MODERATE amount urine
Laboratory Results
10/10/23 05:59
Review of Systems
-
Constitutional: No Symptoms
Respiratory: No Symptoms
Cardiac: No Symptoms
Abdomen/GI: Abdominal Pain
: No Symptoms
Neurological: No Symptoms
Physical Exam
-
General - well nourished, no acute distress
Abdomen - soft, no CVAT
Skin - warm & dry with no rash
Neuro - AOx3, no motor deficits
--- NOTE | 2023-10-11 10:34 | W.PN.OBG.DWH ---
Today's Communication / Plan
-
repeat CBC. transfuse if hgb <9
stop Zosyn
NPO p MN
EKG, Enema
Assessment/Plan
-
43yo HD#3 with AUB resulting in Anemia, Adnexal mass
1. AUB- s/p D&C and pap on 10/09- pathology pending
-CBC repeated today, if <9 Will transfuse 1U PRBCs
2. adnexal Mass
-MRI report seems most c/w endometriomas, less concerning for malignancy though cannot be completely excluded. TOA also less likely especially in the setting of no leukocytosis and afebrile. will stop zosyn now.
-plan is for Robotic assisted hysterectomy with Left oophorectomy, right cystectomy, possible oophorectomy with GynOnc tomorrow
-tumor markers Neg thus far. CA 19-9 still pending
3. NPO past midnight
4. EKG & enema requested by [facility] onc in preparation for procedure tomorrow.
Subjective Data
-
feels well overall, mild abdominal pain, mainly only feels it when someone presses on her abdomen. No n/v/f/c +ambulation, +void, +BM this AM.
Objective Data
-
Laboratory Results
10/10/23 05:59
Vital Signs
Temp Pulse Resp BP Pulse Ox
98.2 F 54 18 129/60 95
10/11/23 07:15 10/11/23 07:15 10/11/23 07:15 10/11/23 07:15 10/11/23 07:15
Gen: nad aaox3
Abd: soft, obese, +ttp in left lower and mid abdomen. no obvious palpable mass
Ext: no ttp
ABDOMEN MRI:
1. MODERATE LEFT HYDROURETERONEPHROSIS secondary to a distal left ureteral obstruction caused by a large left adnexal mass.
2. Mild retroperitoneal lymphadenopathy.
3. Small hiatal hernia.
4. Mild hepatomegaly.
5. Previous cholecystectomy.
PELVIS MRI:
1. LARGE 9.8 cm CENTRALLY CYSTIC LEFT ADNEXAL MASS with a thick surrounding enhancing soft tissue rim. Diagnostic possibilities are (1) a LARGE LEFT OVARIAN ENDOMETRIOMA, (2) a left tubo-ovarian abscess, or (3) a left ovarian epithelial neoplasm.
2. 6 cm septated cyst in the right ovary.
3. Small amount of peritoneal fluid in the pelvis.
4. Mild pelvic and retroperitoneal lymphadenopathy.
5. Complex nabothian cysts in the cervix.
[2023-10-11 11:45] LABS: % Basophils 0.5 % (0-2); % Eosinophils 1.1 % (0-6); % Immature Granulocytes 0.9 % (0-0.5); % Lymphocytes 16.2 % (20.5-51.1); % Monocytes 7.6 % (1.7-9.3); % Neutrophils 73.7 % (42.2-75.2); Absolute Eosinophils 0.1 10^3/uL (0-0.7); Absolute Immature Granulocytes 0.1 10^3/uL (0-0.05); Absolute Lymphocytes 1.3 10^3/uL (1.2-3.4); Absolute Monocytes 0.6 10^3/uL (0.1-0.6); Absolute Neutrophils 5.9 10^3/uL (1.4-6.5); Hematocrit 28.7 % (37.0-47.0); Hemoglobin 8.8 g/dL (12.0-16.0); Mean Corp Hgb Conc. 30.7 g/dL (33.0-37.0); Mean Corpuscular Hgb 20.9 pg (27.0-31.0); Mean Corpuscular Volume 68.2 fL (81.0-99.0); Nucleated Red Blood Cells % 0 %; Platelet Count 300 10^3/uL (130-400); Red Blood Cell Count 4.21 10^6/uL (4.20-5.40)
[2023-10-11 12:50] LABS: Glycohemoglobin (HgbA1c) 5.1 % (4.0-5.6)
--- NOTE | 2023-10-11 15:41 | CM ---
Polish/Ku[place]i speaking patient with Dx DUB, Large left ovarian mass s/p EUA and D&C. Plan OR tomorrow.
Spoke with patient who resides with her and son in an apartment in [place].
The patient is here with her mother visiting and staying with her aunt's 2 story house in [place].
She plans on returning to the aunt's house at d/c for a period of time, unspecified.
The patient has been independent in ADLs and ambulation.
The patient has no DME or prior VN.
PCP - Katharine León in [place]
Pharmacy - [facility]
CM continuing to follow for d/c needs.
Plan home to aunt's house.
[2023-10-11] MEDS: GAVILAX 238 GM PO (17:21)
[2023-10-12] VITALS (14 sets, daily range): BP systolic 120–177; BP diastolic 68–97
[2023-10-12 03:01] LABS: CA 19-9 <2 U/mL (<=35)
--- NOTE | 2023-10-12 07:28 | W.PN.HOSP.TC ---
Today's Communication/Plan
-
OR today
Assessment / Plan
Assessment / Plan
Physical Exam
Gen: NAD, AAOx3.
HEENT: Normocephalic
Neck: supple.
CV: remains RRR, +S1/S2, no m/r/g.
Resp: remains CTAB, no rales, wheezes, or rhonchi.
Abd: +BS, soft, L-sided TTP with guarding, ND
Skin: Warm. Dry.
Neuro: CN 2-12 intact, non-focal.
Psych: Normal mood and affect.

MRI abd/pelvis:
ABDOMEN MRI:
1. MODERATE LEFT HYDROURETERONEPHROSIS secondary to a distal left ureteral obstruction caused by a large left adnexal mass.
2. Mild retroperitoneal lymphadenopathy.
3. Small hiatal hernia.
4. Mild hepatomegaly.
5. Previous cholecystectomy.
PELVIS MRI:
1. LARGE 9.8 cm CENTRALLY CYSTIC LEFT ADNEXAL MASS with a thick surrounding enhancing soft tissue rim. Diagnostic possibilities are (1) a LARGE LEFT OVARIAN ENDOMETRIOMA, (2) a left tubo-ovarian abscess, or (3) a left ovarian epithelial neoplasm.
2. 6 cm septated cyst in the right ovary.
3. Small amount of peritoneal fluid in the pelvis.
4. Mild pelvic and retroperitoneal lymphadenopathy.
5. Complex nabothian cysts in the cervix.

Assessment/Plan
Large complex left adnexal ovarian cystic/solid mass
Presentation with Abdominal Pain
-Imaging above notable for moderate left hydroureteronephrosis due to distal left ureteral obstruction caused by large left adnexal mass, mild retroperitoneal lymphadenopathy, large 9.8 cm centrally cystic left adnexal mass with thick surrounding
enhancing soft tissue rim.
-Pelvic ultrasound showed left ovarian blood flow intact
-Tylenol, Dilaudid for pain
-SUPERVISOR OF INSTRUCTION following
-s/p 10/10/23 EUA and D&C. Note the procedure was technically difficult and samples taken may be suboptimal.
-CA 125 and CEA normal
-follow CA 19-9
-SUPERVISOR OF INSTRUCTION-ONC following. Dr. Tovar discussed case with Dr. Shields. For OR today. Pt is medically optimized for the OR as benefit greatly outweighs risk at this time.
-Dr. Tovar discussed case with Dr. Brandon.
Other problems:
UCx with 50,000 CFU mixed nicolás, likely contaminated. Afebrile, no leukocytosis. Was on Zosyn for a possible UTI (but UTI is unlikely) which was stopped observe. Also, as per Dr. Tovar's discussion with Dr. Brandon, suspicion for tubo-ovarian abscess
is low.
Complex 5.7cm cyst of right ovary
Mild left hydroureteronephrosis due to possible compression of distal ureter from the adnexal mass: no acute urological intervention needed as per Dr. Soto.
Acute on chronic microcytic anemia secondary to menorrhagia: Fe studies unremarkable
Morbid obesity due to excess calories
FULL/SCDs
Anticipated Discharge: 24 - 48 hours
Subjective/Interval History
-
Date of Service: October 12, 2023
Patient was seen and examined. She reported abdominal pain, but no new symptoms or complaints.
Objective Data
-
Vital Signs:
Vital Signs
Temp Pulse Resp BP Pulse Ox
98.2 F 71 16 120/63 99
10/11/23 23:02 10/11/23 23:02 10/11/23 23:02 10/11/23 23:02 10/11/23 23:02
I&O
10/11/23 10/12/23 10/13/23
06:59 06:59 06:59
Intake Total 1789 3370 / 3370
Balance 1789 3370 / 3370
--- NOTE | 2023-10-12 08:42 | W.PN.GYNONC ---
Today's Communication
-
see plan updated
Impression / Plan
-
#1 left lower quadrant pain, left lower quadrant mass. Overall appearance is complex but MRI suggests presence of endometrioma with resulting left hydronephrosis. Possibility of a malignant neoplasm cannot be excluded. Tubo-ovarian abscess is
less likely because of absence of fever and leukocytosis.
#2 right ovarian cyst also concerning for smaller size endometrioma
#3 abnormal uterine bleeding, etiology unclear, D&C was performed yesterday pathology pending suspect excess endogenous estrogen secondary to morbid obesity, patient is at risk because of history of infertility and obesity for endometrial
hyperplasia and cancer although no obvious evidence of that on imaging.
#4 anemia suspect iron deficiency secondary to chronic blood loss, status post transfusion earlier in September and now transfusion during this admission again. B12 and folic acid are normal. Ferritin is reasonably good for somebody with this degree of
acute bleeding, TIBC low. Currently stable at 8.5
Recommendations:
Patient needs to undergo definitive management and require surgery. I spoke at length with the patient and her mother regarding consideration of surgery here versus returning back to [place] and I can certainly make referral to physicians in
[place] for her care. They are insistent to have her care provided. And they feel that she has adequate support locally to undergo treatment.
Plan:
She is scheduled for surgery this afternoon, will sign consent in pre op area.
Plan of surgery will be robotic exploration of abdomen with laparoscopy, total laparoscopic hysterectomy, left salpingo-oophorectomy, attempted preservation of right ovary with right salpingectomy and right ovarian cystectomy. Frozen section will
be obtained from the left tube and ovary and if malignancy is identified right oophorectomy will be completed. Patient will need to undergo additional staging procedures to include but not limited to pelvic and aortic lymph node dissection,
multiple peritoneal biopsies, omentectomy possible bowel resection. She also understands that conversion to laparotomy is possible.
Risk of surgery including infection bleeding injury to adjacent organs DVT pulmonary embolism and cardiovascular complications were discussed and reviewed. She also understands that she needs postoperative follow-up typically at 2 and 6 weeks with
possible need for additional adjuvant treatment depending on the final pathology results.
Subjective / Interval History
-
Patient reports feeling generally well today. She denies any significant discomfort except when she moves in the left lower quadrant.
Showered yesterday yesterday. She tolerated MiraLAX bowel prep well. She also received 1 u prbc.
Objective Data
-
Lab Results:
10/11/23 10:35
10/10/23 05:59
Physical Exam
Vital Signs / I&O
Vitals
Temp Pulse Resp BP Pulse Ox
98.0 F 58 18 130/70 99
10/12/23 07:15 10/12/23 07:15 10/12/23 07:15 10/12/23 07:15 10/12/23 08:00
I&O
10/10/23 10/11/23 10/12/23 10/13/23
06:59 06:59 06:59 06:59
Intake Total 410 / 410 1790 / 1790 3370 / 3370
Balance 410 / 410 1790 / 1790 3370 / 3370
Physical Exam
General: Well Developed and No Apparent Distress
HEENT: Normocephalic
Respiratory: Clear and Non Labored Respirations
Cardiac: S1/S2 and Regular Rhythm
GI: Soft, Non Distended and Tender
Neuro: Awake, Alert and Oriented
Psych: Calm and Intact Judgement
[2023-10-12 10:53] LABS: % Basophils 0.5 % (0-2); % Eosinophils 1.5 % (0-6); % Immature Granulocytes 0.4 % (0-0.5); % Lymphocytes 19.1 % (20.5-51.1); % Monocytes 6.6 % (1.7-9.3); % Neutrophils 71.9 % (42.2-75.2); Absolute Eosinophils 0.1 10^3/uL (0-0.7); Absolute Lymphocytes 1.6 10^3/uL (1.2-3.4); Absolute Monocytes 0.5 10^3/uL (0.1-0.6); Absolute Neutrophils 5.9 10^3/uL (1.4-6.5); Hematocrit 30.6 % (37.0-47.0); Hemoglobin 9.6 g/dL (12.0-16.0); Mean Corp Hgb Conc. 31.4 g/dL (33.0-37.0); Mean Corpuscular Hgb 21.6 pg (27.0-31.0); Mean Corpuscular Volume 68.9 fL (81.0-99.0); Nucleated Red Blood Cells % 0 %; Platelet Count 283 10^3/uL (130-400); Red Blood Cell Count 4.44 10^6/uL (4.20-5.40); White Blood Cell Count 8.2 10^3/uL (4.8-10.8)
[2023-10-12 11:28] LABS: ALT (SGPT) 13 U/L (0-35); AST (SGOT) 20 U/L (14-36); Albumin 3.7 g/dl (3.5-5.0); Alkaline Phosphatase 76 U/L (38-126); Blood Urea Nitrogen 5 mg/dl (7-17); Calcium 9.4 mg/dl (8.4-10.2); Carbon Dioxide 25 mmol/L (22-30); Chloride 106 mmol/L (98-107); Estimated Creatinine Clearance > 125 ml/min; Glucose 101 mg/dl (70-99); Magnesium 1.7 mg/dl (1.6-2.3); Potassium 3.9 mmol/L (3.5-5.1); Sodium 138 mmol/L (135-145); Total Bilirubin 0.7 mg/dl (0.2-1.3); eGFR > 60.00
--- NOTE | 2023-10-12 13:21 | PTCARENOTE ---
Patient to OR in bed with volunteers
--- NOTE | 2023-10-12 16:25 | CM ---
Plan surgery today. Robotic explor of abdomen with laparoscopy, total laparoscopic hysterectomy, left salpingo-oophorectomy, attempted preservation of right ovary with right salpingectomy and right ovarian cystectomy. Discharge Plan of Care: TBD
based on post-op needs.
--- NOTE | 2023-10-12 17:00 | W.IMMPOSTOP ---
Surgical Immed Post Op Note
-
Primary Surgeon: Jason
Pre-op Diagnosis: LLQ mass, mild left hydroureteronephrosis, abnormal uterine bleeding
Post-op Diagnosis: Same
Procedure Performed: cystoscopy
Anesthesia Type: GETA
Specimen / Cultures: None/None
Estimated Blood Loss: None (urologic portion)
Drains: None
Complications: None
Operative Findings:
Brisk urine jet w/ clear urine efflux x2 noted from both left and right UOs on cystoscopy
No evidence of hematuria
--- NOTE | 2023-10-12 17:59 | W.IMMPOSTOP ---
Surgical Immed Post Op Note
-
Primary Surgeon: Jeovany Shields
Assisting Surgeon: Adrián Rivera PA-C
Pre-op Diagnosis: LLQ mass, Abnormal uterine bleeding
Post-op Diagnosis: hemorrhagic cyst of left oovary with TOA, benign cyst of right ovary
Procedure Performed: Robotic assisted TLH LSO, Right salpingectomy, Right ovary cystectomy, pelvic washings, minilaparotomy, TAP Block,
Cystoscopy by Dr Gomez
Anesthesia Type: General ET
Specimen / Cultures: Uterus and cervix, Left tube and ovary, Right tube, Right ovary cyst, sigmoid implant
Estimated Blood Loss: 250cc
Complications: None
Operative Findings: see dictated op note
--- NOTE | 2023-10-12 18:05 | OR.RPT ---
Operative Report
Operative Report
The assistance of Ninfa Johnson PA-C was required due to the complexity of the procedure. During the procedure Ninfa Johnson assisted with retraction, resection, and closure of the wound.
Date of surgery October 12, 2023
Preoperative diagnosis: Left lower quadrant mass, left lower quadrant pain, abnormal uterine bleeding with resulting anemia
Postoperative diagnosis left ovary with suspected tubo-ovarian abscess, also has endometrioma and hemorrhagic features. Uterus is enlarged, there is a rind of inflammatory tissue along the left pelvic sidewall, moderate filmy adhesions as a result
of inflammatory changes in the pelvis posterior and anterior to the uterus. Significant adhesions between sigmoid colon and left tube and ovary, right ovary with 2 simple cysts
Surgeon: Jeovany Shields MD
Assist: Adrián Rivera PA-C
Ninfa Johnson PA-C
Procedures: Robotic assisted total laparoscopic hysterectomy,
left salpingo-oophorectomy,
extensive enterolysis,
right salpingectomy, right ovarian cystectomy,
mini laparotomy for extraction of specimen,
tap block,
cystoscopy by Dr Gomez
Anesthesia: General endotracheal intubation
Estimated blood loss 250 cc
Complications: None
Procedure in detail this patient was taken to the operating room and placed in supine position. General anesthesia was administered she was intubated without any difficulty. Arms were wrapped and placed along the side without any pressure on any
joints. She was placed in lithotomy position using yellowfin stirrups. She was prepped on the abdomen pelvis, upper thighs and vagina. Under sterile conditions Saleh catheter was placed in the bladder. Anesthesia team attempted tap block was
unsuccessful due to obesity. Timeout procedure was carried out she received 3 g of Ancef and Flagyl 500 mg. She also received 5000 units of heparin subcutaneously. I went ahead and dilated the cervix after anterior lip of the cervix was grasped,
we injected 4 cc ICG dye at 3 and 9:00 at 5 and 10 mm stations. The cervix was dilated, the uterus sounded to 12 cm. Uterine manipulator anatomic pathologist type with 3 cm BEBO ring was placed in the uterine cavity and vaginal cuff occluder was insufflated.
Veress needle was inserted just below the left subcostal margin into the peritoneal cavity and pneumoperitoneum up to pressure of 15 mmHg was accomplished. I then went ahead and placed a 8 mm X Xi robotic port in the mid upper abdomen 25 cm
cephalad to symphysis pubis., Under direct visualization 8 mm robotic ports were placed in right and left upper quadrants as well as left lateral abdomen and a 12 mm air seal port was placed in the right lower quadrant.
Tap block was performed by injection of ropivacaine under direct visualization 2 fingerbreadths below the right and left costal margins in the lateral abdomen between the peritoneum and under the muscle.
Upper abdomen including right and left diaphragm as well as liver were normal in appearance. We placed the patient in 28 degree Trendelenburg, robotic system was docked. We turned our attention to the omental adhesion to the anterior abdominal
wall which was sharply taken down, washings were collected in the pelvis and submitted to pathology, there was significant filmy adhesions in the anterior and posterior cul-de-sac there were dense adhesions between the mesentery of the sigmoid colon
as well as posterior aspect of the uterus and left adnexal mass, the right tube and ovary was without any adhesions. There was thick inflammatory rind of tissue surrounding the left ovarian vessels. I went ahead and opened the round ligament on
both sides by sealing and dividing it right and left anterior and posterior leaves of the broad ligament were dissected open. On the right side right ovarian cystectomy was performed and cysts were submitted to pathology. The bed of the cystectomy
was cauterized. I used a vessel sealer to seal and divide across the mesial salpinx. The right fallopian tube was submitted to pathology. We developed the bladder flap and advanced below the cervicovaginal junction. I took down all the adhesions
between the sigmoid colon mesentery and the mass. I was unable to open the retroperitoneum on the left side. I was able to follow the tract of left IP ligament towards anterior abdominal wall well below crossing of the external iliac artery and I
gradually sealed and divided this pedicle. Left tube and ovary was then gradually mobilized until it was completely freed during this process the cyst did rupture and a milky fluid came out, we collected some of this for culture and the remainder
of it was irrigated and washed out. We used a vessel sealer to detach the tube and ovary from the uterus and this was placed in a bag for future retrieval. We then turned our attention to the uterus, the left parametria was very inflamed I was
able to seal and divided with LigaSure device the uterine vessels were sealed and divided on the right side. Circumferential incision was made around the BEBO ring until the entire specimen was completely detached. Uterine manipulator was removed
the specimen of uterus and cervix was placed in a bag. I was then able to take a biopsy of some of the rind of tissue on the anterior aspect of the sigmoid colon and sent it for frozen section and this showed inflammatory changes only. We closed
the vaginal cuff by 0 Vicryl suture ligature in a [id number] fashion in the right and left apices. V-Loc suture was used to close the cuff in a bidirectional fashion in 2 layers. At this point I consulted urology, Dr. Gomez came in and
performed a cystoscopy there was no evidence of injury or blood in the bladder, there was good E flux from both ureters visualized. This proved that we did not have any injury to the bladder or the ureter. We used a Casper Villegas system to close
the port site at the level of the fascia with 0 Vicryl suture. Next we made a 8 cm lower abdominal transverse incision above the pannus. This was taken down and the fascia was opened and the peritoneum was entered. Both left tube and ovary as
well as uterus and cervix was removed. Frozen section of the left tube and ovary was hemorrhagic cyst consistent with endometrioma with no obvious evidence of malignancy. I then went ahead and closed the fascia with 2 sutures of STRATAFIX starting
from both ends coming to the middle and going back in a bidirectional fashion for each half. Subcutaneous tissue was closed with a running suture of 2-0 Monocryl. Skin incision was closed with 4-0 Monocryl in a subcuticular fashion both involving
mini laparotomy incision as well as all port sites. The Saleh catheter was removed. Patient was awakened extubated and returned back to recovery room stable awake and extubated condition. Counts of laps instruments and needle was correct x 2. I
was present and scrubbed for entire procedure as dictated above.
[2023-10-12] MEDS: DILAUDID 0.5 MG IV (19:06)
[2023-10-12] MEDS: TYLENOL 1000 MG PO (19:33)
[2023-10-12] MEDS: LR 1000 IV (19:33)
[2023-10-12 19:42] LABS: Blood Urea Nitrogen 5 mg/dl (7-17); Calcium 8.2 mg/dl (8.4-10.2); Carbon Dioxide 22 mmol/L (22-30); Chloride 105 mmol/L (98-107); Estimated Creatinine Clearance > 125 ml/min; Glucose 154 mg/dl (70-99); Potassium 3.8 mmol/L (3.5-5.1); Sodium 135 mmol/L (135-145); eGFR > 60.00
[2023-10-12 19:49] LABS: Hematocrit 29.9 % (37.0-47.0); Hemoglobin 9.4 g/dL (12.0-16.0); Mean Corp Hgb Conc. 31.4 g/dL (33.0-37.0); Mean Corpuscular Hgb 21.6 pg (27.0-31.0); Mean Corpuscular Volume 68.6 fL (81.0-99.0); Red Blood Cell Count 4.36 10^6/uL (4.20-5.40); White Blood Cell Count 14.9 10^3/uL (4.8-10.8)
[2023-10-12 19:50] LABS: Platelet Count 269 10^3/uL (130-400)
[2023-10-12] MEDS: LOVENOX 40 MG SC (21:51)
[2023-10-12] MEDS: ZOSYN IV (21:56)
[2023-10-12] MEDS: ROXICODONE 5 MG PO (23:22)
[2023-10-12] MEDS: ZOSYN 50 IV (23:22)
--- NOTE | 2023-10-13 01:53 | PTCARENOTE ---
19:50 pt rec'd from PACU, aaax3, able to verbalize needs, current pain 3-4/10declines need for pain meds. IVF infusing. On assessment 5lap sites with 1 transverse glued site observed ACTIVITY ASSISTANT. Pt was able to void in bedside commode, no vaginal bleeding
noted. VS WNL.
[2023-10-13 03:01] VITALS: BP 131/73
[2023-10-13] MEDS: LR 1000 IV ×3 (04:15→22:26)
[2023-10-13] MEDS: ZOSYN 50 IV ×2 (05:48→12:21)
[2023-10-13] MEDS: DILAUDID 0.5 MG IV ×3 (06:25→16:34)
[2023-10-13 07:03] VITALS: BP 125/66
[2023-10-13 07:36] LABS: % Basophils 0.1 % (0-2); % Immature Granulocytes 0.3 % (0-0.5); % Lymphocytes 7.8 % (20.5-51.1); % Monocytes 6.9 % (1.7-9.3); % Neutrophils 84.9 % (42.2-75.2); Absolute Lymphocytes 0.9 10^3/uL (1.2-3.4); Absolute Monocytes 0.8 10^3/uL (0.1-0.6); Absolute Neutrophils 10.1 10^3/uL (1.4-6.5); Hematocrit 29.3 % (37.0-47.0); Hemoglobin 9.1 g/dL (12.0-16.0); Mean Corp Hgb Conc. 31.1 g/dL (33.0-37.0); Mean Corpuscular Hgb 21.8 pg (27.0-31.0); Mean Corpuscular Volume 70.3 fL (81.0-99.0); Nucleated Red Blood Cells % 0 %; Platelet Count 284 10^3/uL (130-400); Red Blood Cell Count 4.17 10^6/uL (4.20-5.40)
[2023-10-13 07:59] LABS: Blood Urea Nitrogen 6 mg/dl (7-17); Calcium 8.6 mg/dl (8.4-10.2); Carbon Dioxide 22 mmol/L (22-30); Chloride 106 mmol/L (98-107); Estimated Creatinine Clearance > 125 ml/min; Glucose 125 mg/dl (70-99); Potassium 4.2 mmol/L (3.5-5.1); Sodium 137 mmol/L (135-145); eGFR > 60.00
[2023-10-13 08:11] LABS: Magnesium 2.3 mg/dl (1.6-2.3)
--- NOTE | 2023-10-13 09:54 | W.PN.HOSP.TC ---
Today's Communication/Plan
-
Some pain still
IV fluids to be stopped by gynecology today
Appreciate ID
Assessment / Plan
Assessment / Plan
Physical Exam
Gen: NAD, AAOx3.
HEENT: Normocephalic
Neck: supple.
CV: remains RRR, +S1/S2, no m/r/g.
Resp: remains CTAB, no rales, wheezes, or rhonchi.
Abd: +BS, soft, L-sided TTP with guarding, ND
Skin: Warm. Dry.
Neuro: CN 2-12 intact, non-focal.
Psych: Normal mood and affect.

MRI abd/pelvis:
ABDOMEN MRI:
1. MODERATE LEFT HYDROURETERONEPHROSIS secondary to a distal left ureteral obstruction caused by a large left adnexal mass.
2. Mild retroperitoneal lymphadenopathy.
3. Small hiatal hernia.
4. Mild hepatomegaly.
5. Previous cholecystectomy.
PELVIS MRI:
1. LARGE 9.8 cm CENTRALLY CYSTIC LEFT ADNEXAL MASS with a thick surrounding enhancing soft tissue rim. Diagnostic possibilities are (1) a LARGE LEFT OVARIAN ENDOMETRIOMA, (2) a left tubo-ovarian abscess, or (3) a left ovarian epithelial neoplasm.
2. 6 cm septated cyst in the right ovary.
3. Small amount of peritoneal fluid in the pelvis.
4. Mild pelvic and retroperitoneal lymphadenopathy.
5. Complex nabothian cysts in the cervix.

Assessment/Plan
Large complex left adnexal ovarian cystic/solid mass status post robotic TLH LSO and right ovary cystectomy
Presentation with Abdominal Pain
-Imaging above notable for moderate left hydroureteronephrosis due to distal left ureteral obstruction caused by large left adnexal mass, mild retroperitoneal lymphadenopathy, large 9.8 cm centrally cystic left adnexal mass with thick surrounding
enhancing soft tissue rim.
-Pelvic ultrasound showed left ovarian blood flow intact
-Tylenol, Dilaudid for pain
-PHARMACOMETRICIAN following
-s/p 10/10/23 EUA and D&C. Note the procedure was technically difficult and samples taken may be suboptimal.
-CA 125 and CEA normal
-follow CA 19-9
-On 10/13/23, Dr. Shields did a robotic TLH, left salpingo-oophorectomy, and right ovary cystectomy and right salpingectomy. The left mass appeared to have a milky fluid suggestive of tubo-ovarian abscess, also had endometrioma and hemorrhagic
features.
-Consulted ID, recommendations appreciated
Other problems:
UCx with 50,000 CFU mixed nicolás, likely contaminated. Afebrile, no leukocytosis. Was on Zosyn for a possible UTI (but UTI is unlikely) which was stopped observe, but Zosyn restarted given OR findings on 10/12/23. Also, as per Dr. Tovar's discussion
with Dr. Brandon, suspicion for tubo-ovarian abscess is low.
Complex 5.7cm cyst of right ovary
Mild left hydroureteronephrosis due to possible compression of distal ureter from the adnexal mass: no acute urological intervention needed as per Dr. Soto.
Acute on chronic microcytic anemia secondary to menorrhagia: Fe studies unremarkable
Morbid obesity due to excess calories
FULL/Lovenox for DVT Prophylaxis
Anticipated Discharge: 24 - 48 hours
Subjective/Interval History
-
Date of Service: October 13, 2023
Patient was seen and examined. She reported some abdominal pain, especially with movement but otherwise denied any other new, significant complaints.
Objective Data
-
Labs:
Laboratory Results
10/13/23
06:35
WBC 12.0 H
Hgb 9.1 L
Hct 29.3 L
Plt Count 284
Sodium 137
Potassium 4.2
Chloride 106
Carbon Dioxide 22
BUN 6 L
Creatinine 0.6
Glucose 125 H
Calcium 8.6
Vital Signs:
Vital Signs
Temp Pulse Resp BP Pulse Ox
98.5 F 63 16 125/66 93
10/13/23 07:03 10/13/23 07:03 10/13/23 07:03 10/13/23 07:03 10/13/23 07:03
I&O
10/12/23 10/13/23 10/14/23
06:59 06:59 06:59
Intake Total 3370 / 3370 1747.5 / 1747.5
Output Total 1100 / 1100
Balance 3370 / 3370 647.5 / 647.5
--- NOTE | 2023-10-13 10:12 | W.PN.GYNONC ---
Today's Communication
-
D/C IV fluids and start regular diet
continue IV antibiotics pending ID recommendations
Impression / Plan
-
POD 1 - S/P robotic assisted TLH LSO, right salpingectomy right ovarian cystectomy- Left TOA found during procedure patient recovering well
plan/recommendation - case reviewed with Dr Shields
Stop IV fluids and return to regular diet
continue IV antibiotics - awaiting ID recommendations
up and out of bed, may need PT since been in hospital since 10/09
tylenol 1000mg and motrin 600mg q 6 hr for 72 hrs then PRN pain
will need 2 wk outpatient office appointment for post op
Subjective / Interval History
-
post op day 1- She is s/p roboitc TLH LSO and right ovarian cystectomy No complaints except for some incisional pain Has been up but only to bathroom
Objective Data
-
Lab Results:
10/13/23 06:35
10/13/23 06:35
Physical Exam
Vital Signs / I&O
Vitals
Temp Pulse Resp BP Pulse Ox
98.5 F 63 16 125/66 93
10/13/23 07:03 10/13/23 07:03 10/13/23 07:03 10/13/23 07:03 10/13/23 07:03
I&O
10/11/23 10/12/23 10/13/23 10/14/23
06:59 06:59 06:59 06:59
Intake Total 1789 / 1789 3370 / 3370 1747.5 / 1747.5
Output Total 1100 / 1100
Balance 1789 / 0 3370 / 3370 647.5 / 647.5
Physical Exam
VSS
Afebrile
abdomen soft incisional tenderness Incision dry and healing well
extremities- no edema or swelling
Data Reviewed
-
Lab Data: Labs Reviewed, Discussed with Physician and Discussed with Patient
[2023-10-13 11:58] VITALS: BP 140/75
--- NOTE | 2023-10-13 12:19 | CM ---
POD #1 - S/P robotic assisted TLH LSO, right salpingectomy right ovarian cystectomy. Regular diet, IV/AB. Discharge Plan of Care: Anticipate no needs.
--- NOTE | 2023-10-13 14:44 | CON.ID ---
Consultation
-
Date/Time Consultation Requested: October 13, 2023 1002
Date/Time Consultation Performed: October 13, 2023 1445
Requesting Provider: Dr. Joseph Walter
Performing Provider: Dr. Selina Rankin
Reason for Consultation: TOA
Chief Complaint / Past History
Chief Complaint
Left lower quadrant pain
History of Present Illness
43-year-old female with history of menorrhagia who is from [place] and was hospitalized in early August with left lower quadrant abdominal pain and found to have severe anemia hemoglobin of 5. Imaging showed left ovarian cyst. Patient then came to
[place] to visit her aunt. On October 08 she again developed acute onset of severe left lower quadrant pain. She presented to [facility] ER the same day. CAT scan of the abdomen pelvis shows 8 to 10 cm left adnexal mass with mild left
hydroureteronephrosis. She was started on Zosyn. October 09 she was taken to the OR status post D and C, Pap smear. October 11 she underwent robotic assisted total laparoscopic hysterectomy, left salpingo-oophorectomy. OR findings suspicious for
tubo-ovarian abscess, the cyst ruptured and spilled some milky fluid. Also there was endometrioma with hemorrhagic features. OR Gram stains negative, culture negative to date. Infectious disease has been consulted for antibiotic management.
Patient denies ever having any fevers or chills. She is sexually active with her only. No history of STDs. Currently has some postop pain.
Past History
Additional Past Medical History:
Menorrhagia
BMI 43
Additional Past Surgical History:
Cholecystectomy
Allergy History:
No Known Allergies Allergy (Verified 10/09/23 12:22)
Medications Reviewed: Yes
Current Antibiotics:
zosyn d4
Social History
Tobacco: Non-Smoker
Alcohol: None
Personal:
Living: With Family (in [place])
Review of Systems
Review of Systems
General: Negative Fever, Chills or Change in Appetite
HEENT: Negative Sinus Problems, Headache or Pharyngitis
Cardiovascular: Negative Chest Pain or Dyspnea
Respiratory: Negative Dyspnea or Cough
Gasteroenterology: Negative Nausea or Vomiting
Genital / Urological: Negative Dysuria or Flank Pain
Endocrine: Negative Weakness
Skin / Hair / Nails: Negative Rash
Neurological: Negative Headache or Dizziness
All systems: All other systems were reviewed and were negative
Vital Signs
Temp Pulse Resp BP Pulse Ox
99 F 77 16 140/75 94
10/13/23 11:58 10/13/23 11:58 10/13/23 11:58 10/13/23 11:58 10/13/23 11:58
Physical Exam
Physical Exam
Constitutional: No Acute Distress and Comfortable
Eyes: No Conjunctival Hemorrhage and Sclera Anicteric
Cardiovascular: Regular Rate and S1/S2
Pulmonary: Clear
Gastrointestinal: Soft, Tender (mild tender right and lower quadrant) and Non Distended
Extremities: Negative Edema
Neurological: AO x 3
Lab / Diagnostic Study Results
10/13/23 06:35
10/13/23 06:35
Abs Immat Gran (auto) 0.0 10^3/uL (0-0.05) 10/13/23 06:35
Absolute Neuts (auto) 10.1 10^3/uL (1.4-6.5) H 10/13/23 06:35
Absolute Lymphs (auto) 0.9 10^3/uL (1.2-3.4) L 10/13/23 06:35
Absolute Monos (auto) 0.8 10^3/uL (0.1-0.6) H 10/13/23 06:35
Absolute Basos (auto) 0.0 10^3/uL (0-0.2) 10/13/23 06:35
Immature Gran % 0.3 % (0-0.5) 10/13/23 06:35
Neutrophils % 84.9 % (42.2-75.2) H 10/13/23 06:35
Lymphocytes % 7.8 % (20.5-51.1) L 10/13/23 06:35
Monocytes % 6.9 % (1.7-9.3) 10/13/23 06:35
Eosinophils % 0.0 % (0-6) 10/13/23 06:35
Basophils % 0.1 % (0-2) 10/13/23 06:35
PT 14.2 Sec (11.4-14.6) 10/10/23 00:47
INR 1.12 10/10/23 00:47
Microbiology Results
Micro:
10/12/23 16:00 Wound Culture - Preliminary
Abdomen No growth
Gram Stain - Preliminary
10/12/23 16:00 Anaerobic Culture - Preliminary
Ovary - Left Culture pending. Anaerobic cultures are examined after 3
days incubation. Additional information to follow.
10/12/23 16:00 Wound Culture - Preliminary
Mass No growth
Gram Stain - Preliminary
10/10/23 05:43 MRSA Screen - Final
Nose No Methicillin Resistant Staphylococcus aureus isolated.
10/09/23 15:04 Urine Culture - Final
Urine
10/10/23 Abd/pelvic MRI: MODERATE LEFT HYDROURETERONEPHROSIS secondary to a distal left ureteral obstruction caused by a large left adnexal mass. LARGE 9.8 cm CENTRALLY CYSTIC LEFT ADNEXAL MASS with a thick surrounding enhancing soft tissue rim.
Assessment / Plan
# Suspected TOA
- 10/12/23 s/p hysterectomy, L salpingo-oophorectomy, right salpingectomy, right ovarian cystectomy
- OR cx's negative to date
- Replace Zosyn with Unasyn 3g IV q6 plus doxycycline 100mg po bid
- Continue to follow OR cx's.
# Leukocytosis - postop
- Trend for now
[2023-10-13 15:12] VITALS: BP 137/59
[2023-10-13] MEDS: LOVENOX 40 MG SC (17:21)
[2023-10-13] MEDS: UNASYN IV (17:21)
[2023-10-13] MEDS: TYLENOL 1000 MG PO (17:43)
[2023-10-13] MEDS: MOTRIN 600 MG PO (17:43)
[2023-10-13] MEDS: SENOKOT-S 1 TABLET PO (20:08)
[2023-10-13] MEDS: VIBRAMYCIN 100 MG PO (20:08)
[2023-10-13 22:53] VITALS: BP 135/68
[2023-10-14] MEDS: MOTRIN 600 MG PO ×4 (00:19→17:21)
[2023-10-14] MEDS: UNASYN IV ×3 (00:19→11:29)
[2023-10-14] MEDS: TYLENOL 1000 MG PO ×4 (00:19→17:21)
[2023-10-14] MEDS: SENOKOT-S 1 TABLET PO (07:01)
[2023-10-14] MEDS: VIBRAMYCIN 100 MG PO (07:01)
[2023-10-14 07:15] VITALS: BP 138/76
[2023-10-14 07:29] LABS: Blood Urea Nitrogen 5 mg/dl (7-17); Calcium 8.3 mg/dl (8.4-10.2); Carbon Dioxide 26 mmol/L (22-30); Chloride 105 mmol/L (98-107); Estimated Creatinine Clearance > 125 ml/min; Glucose 99 mg/dl (70-99); Potassium 3.3 mmol/L (3.5-5.1); Sodium 136 mmol/L (135-145); eGFR > 60.00
[2023-10-14] MEDS: KCL 40 MEQ PO (09:07)
[2023-10-14 09:22] LABS: % Basophils 0.3 % (0-2); % Eosinophils 0.2 % (0-6); % Immature Granulocytes 0.6 % (0-0.5); % Lymphocytes 9.8 % (20.5-51.1); % Monocytes 5.8 % (1.7-9.3); % Neutrophils 83.3 % (42.2-75.2); Absolute Immature Granulocytes 0.1 10^3/uL (0-0.05); Absolute Lymphocytes 1.1 10^3/uL (1.2-3.4); Absolute Monocytes 0.6 10^3/uL (0.1-0.6); Absolute Neutrophils 9.1 10^3/uL (1.4-6.5); Hematocrit 25.7 % (37.0-47.0); Mean Corp Hgb Conc. 31.1 g/dL (33.0-37.0); Mean Corpuscular Hgb 22.1 pg (27.0-31.0); Nucleated Red Blood Cells % 0 %; Platelet Count 265 10^3/uL (130-400); Red Blood Cell Count 3.62 10^6/uL (4.20-5.40)
--- NOTE | 2023-10-14 09:37 | W.PN.GYNONC ---
Today's Communication
-
patient can be discharge to home pending medical and ID recommendation
Impression / Plan
-
POD 1 - S/P robotic assisted TLH LSO, right salpingectomy right ovarian cystectomy- Left TOA found during procedure patient recovering well
plan/recommendation - case reviewed with Dr Shields
Stop IV fluids and return to regular diet
continue IV antibiotics - awaiting ID recommendations
up and out of bed, may need PT since been in hospital since 10/09
tylenol 1000mg and motrin 600mg q 6 hr for 72 hrs then PRN pain
will need 2 wk outpatient office appointment for post op
10/13- POD #2- patient recovering well case discussed with Dr Shields
continue up and out of bed, tylenol and motrin for pain management
path and cultures still pending, continue antibiotics per ID
surgical management can be continued outpatient and can be discharge to home pending medical and ID
Subjective / Interval History
-
pod 2 - S/P robotic TLH left salpingo oophorectomy and right salpingectomy and right ovarian cystectomy Feeling better still have gas pain. Tolerating regular diet Has been able to get out of bed more
Objective Data
-
Lab Results:
10/14/23 08:53
10/14/23 05:48
Physical Exam
Vital Signs / I&O
Vitals
Temp Pulse Resp BP Pulse Ox
98.2 F 70 18 138/76 96
10/14/23 07:15 10/14/23 07:15 10/14/23 07:15 10/14/23 07:15 10/14/23 07:15
I&O
10/12/23 10/13/23 10/14/23 10/15/23
06:59 06:59 06:59 06:59
Intake Total 3370 / 3370 1747.5 / 1747.5 4790 / 4790
Output Total 1100 / 1100 2350 / 2350
Balance 3370 / 3370 647.5 / 647.5 2440 / 2440
Physical Exam
VSS
afebrile
abdomen soft incisional tenderness
extremities no swelling or edema
[2023-10-14 10:17] LABS: Anisocytosis 1+; Hypochromasia Slight; Normal RBC Morphology No; Ovalocytes Slight
--- NOTE | 2023-10-14 10:33 | W.PN.HOSP.TC ---
Today's Communication/Plan
-
Outsole Molder Dr. Jeovany Shields has cleared patient for discharge from his standpoint, however, prior to discharge:
1) ID will re-evaluate patient later today, appreciate ID eval and recommendations
2) Recheck patient BMP at noon
3) Recheck CBC/Hgb plus iron studies at noon
If ID gives okay for oral antibiotics, and above labwork comes back okay, then patient can be discharged today.
Assessment / Plan
Assessment / Plan
Physical Exam
Gen: NAD, AAOx3.
HEENT: Normocephalic
Neck: supple.
CV: remains RRR, +S1/S2, no m/r/g.
Resp: remains CTAB, no rales, wheezes, or rhonchi.
Abd: +BS, soft, appropriate post-surgical tenderness, non-distended
Skin: Warm. Dry.
Neuro: CN 2-12 intact, non-focal.
Psych: Normal mood and affect.

MRI abd/pelvis:
ABDOMEN MRI:
1. MODERATE LEFT HYDROURETERONEPHROSIS secondary to a distal left ureteral obstruction caused by a large left adnexal mass.
2. Mild retroperitoneal lymphadenopathy.
3. Small hiatal hernia.
4. Mild hepatomegaly.
5. Previous cholecystectomy.
PELVIS MRI:
1. LARGE 9.8 cm CENTRALLY CYSTIC LEFT ADNEXAL MASS with a thick surrounding enhancing soft tissue rim. Diagnostic possibilities are (1) a LARGE LEFT OVARIAN ENDOMETRIOMA, (2) a left tubo-ovarian abscess, or (3) a left ovarian epithelial neoplasm.
2. 6 cm septated cyst in the right ovary.
3. Small amount of peritoneal fluid in the pelvis.
4. Mild pelvic and retroperitoneal lymphadenopathy.
5. Complex nabothian cysts in the cervix.

Assessment/Plan
Large complex left adnexal ovarian cystic/solid mass status post robotic TLH LSO and right ovary cystectomy
Presentation with Abdominal Pain
-Imaging above notable for moderate left hydroureteronephrosis due to distal left ureteral obstruction caused by large left adnexal mass, mild retroperitoneal lymphadenopathy, large 9.8 cm centrally cystic left adnexal mass with thick surrounding
enhancing soft tissue rim.
-Pelvic ultrasound showed left ovarian blood flow intact
-Tylenol, Dilaudid for pain
-ACID RETORT OPERATOR following
-s/p 10/10/23 EUA and D&C. Note the procedure was technically difficult and samples taken may be suboptimal.
-On 10/13/23, Dr. Shields did a robotic TLH, left salpingo-oophorectomy, and right ovary cystectomy and right salpingectomy. The left mass appeared to have a milky fluid suggestive of tubo-ovarian abscess, also had endometrioma and hemorrhagic
features.
-For pain as per cold storage worker: tylenol 1000mg and motrin 600mg q 6 hr for 72 hrs then PRN pain
-Per Dr. Jeovany Shields, he recommended no narcotic medications at the time of discharge
-Will need 2 wk outpatient head of commission department office appointment for post op
-Okay for discharge as per Dr. Jeovany Shields
-Consulted ID, recommendations appreciated: Unasyn and Doxycycline while inpatient, appreciate ID evaluation and recommendations
Hypokalemia
-Replaced
-Repeat BMP, as well as magnesium, have been ordered
Microcytic Anemia
-Worsened to Hgb of 8 on 10/14/23
-Recheck CBC later today
-Also check iron studies
Other problems:
UCx with 50,000 CFU mixed nicolás, likely contaminated. Afebrile, no leukocytosis. Was on Zosyn for a possible UTI (but UTI is unlikely) which was stopped observe, but antibiotics restarted given OR findings on 10/12/23.
Complex 5.7cm cyst of right ovary
Mild left hydroureteronephrosis due to possible compression of distal ureter from the adnexal mass: no acute urological intervention needed as per Dr. Soto.
Acute on chronic microcytic anemia secondary to menorrhagia: Fe studies unremarkable
Morbid obesity due to excess calories
FULL/Lovenox for DVT Prophylaxis
Anticipated Discharge: Within 24 hours
Subjective/Interval History
-
Date of Service: October 14, 2023
Patient was seen and examined. She reported post-surgical pain in her abdomen, worse whenever she coughs but otherwise denied any other significant symptoms or complaints.
Objective Data
-
Labs:
Laboratory Results
10/14/23 10/14/23
05:48 08:53
WBC 11.0 H
Hgb 8.0 L
Hct 25.7 L
Plt Count 265
Sodium 136
Potassium 3.3 L
Chloride 105
Carbon Dioxide 26
BUN 5 L
Creatinine 0.6
Glucose 99
Calcium 8.3 L
Vital Signs:
Vital Signs
Temp Pulse Resp BP Pulse Ox
98.2 F 70 18 138/76 96
10/14/23 07:15 10/14/23 07:15 10/14/23 07:15 10/14/23 07:15 10/14/23 07:15
I&O
10/13/23 10/14/23 10/15/23
06:59 06:59 06:59
Intake Total 1747.5 / 1747.5 4790 / 4790
Output Total 1100 / 1100 2350 / 2350
Balance 647.5 / 647.5 2440 / 2440
--- NOTE | 2023-10-14 12:48 | W.PN.ID1 ---
Date of Service
Date of Service: October 14, 2023
Today's Communication
Can transition Unasyn 3g IV q6 to Augmentin 875mg po bid through 10/26/23
Continue doxycycline 100mg po bid through 10/26/23.
Assessment / Plan
# Suspected TOA
- 10/12/23 s/p hysterectomy, L salpingo-oophorectomy, right salpingectomy, right ovarian cystectomy
- OR cx's negative to date
- Can transition Unasyn 3g IV q6 to Augmentin 875mg po bid through 10/26/23
- Continue doxycycline 100mg po bid through 10/26/23
# Leukocytosis - postop
- Trending down
Chief Complaint
-: Other (pelvic abscess)
Subjective / Review of Systems
Feels well. Pos-op pain minimal.
Vital Signs / Physical Exam
Vital Signs
Vital Signs
Temp Pulse Resp BP Pulse Ox
98.2 F 70 18 138/76 96
10/14/23 07:15 10/14/23 07:15 10/14/23 07:15 10/14/23 07:15 10/14/23 07:15
Physical Exam
Constitutional: No Acute Distress and Comfortable
Cardiovascular: Regular Rate and S1/S2
Pulmonary: Clear
Gastrointestinal: Soft, Non Tender and Non Distended
Neurological: AO x 3
Objective Data
Lab Data
PT 14.2 Sec (11.4-14.6) 10/10/23 00:47
INR 1.12 10/10/23 00:47
APTT 38.5 Sec (23.4-35.0) H 10/10/23 00:47
Estimated Creat Clear > 125 ml/min 10/14/23 05:48
Total Bilirubin 0.7 mg/dl (0.2-1.3) 10/12/23 10:36
AST 20 U/L (14-36) 10/12/23 10:36
ALT 13 U/L (0-35) 10/12/23 10:36
Alkaline Phosphatase 76 U/L (38-126) 10/12/23 10:36
Most recent labs reviewed.
Micro Results:
10/12/23 16:00 Wound Culture - Final
Abdomen No growth
Gram Stain - Final
10/12/23 16:00 Anaerobic Culture - Preliminary
Ovary - Left Culture pending. Anaerobic cultures are examined after 3
days incubation. Additional information to follow.
10/12/23 16:00 Wound Culture - Preliminary
Mass No growth
Gram Stain - Preliminary
10/10/23 05:43 MRSA Screen - Final
Nose No Methicillin Resistant Staphylococcus aureus isolated.
10/09/23 15:04 Urine Culture - Final
Urine
10/10/23 Abd/pelvic MRI: MODERATE LEFT HYDROURETERONEPHROSIS secondary to a distal left ureteral obstruction caused by a large left adnexal mass. LARGE 9.8 cm CENTRALLY CYSTIC LEFT ADNEXAL MASS with a thick surrounding enhancing soft tissue rim.
Care Review
Plan reviewed with: Physician (Dr. Walter)
[2023-10-14 14:20] LABS: Hematocrit 26.4 % (37.0-47.0); Hemoglobin 8.2 g/dL (12.0-16.0); Mean Corp Hgb Conc. 31.1 g/dL (33.0-37.0); Mean Corpuscular Hgb 21.6 pg (27.0-31.0); Mean Corpuscular Volume 69.5 fL (81.0-99.0); White Blood Cell Count 11.1 10^3/uL (4.8-10.8)
[2023-10-14 14:45] LABS: Blood Urea Nitrogen 5 mg/dl (7-17); Calcium 8.9 mg/dl (8.4-10.2); Carbon Dioxide 26 mmol/L (22-30); Chloride 104 mmol/L (98-107); Estimated Creatinine Clearance > 125 ml/min; Glucose 86 mg/dl (70-99); Iron 30 ug/dl (37-170); Magnesium 1.7 mg/dl (1.6-2.3); Potassium 3.6 mmol/L (3.5-5.1); Sodium 137 mmol/L (135-145); eGFR > 60.00
[2023-10-14 14:55] LABS: Percent Saturation 11 % (20-50); Total Iron Binding Capacity 252 ug/dl (265-497)
[2023-10-14 15:05] VITALS: BP 123/64
[2023-10-14 15:20] VITALS: BP 147/78
[2023-10-14 15:21] LABS: Ferritin 73.5 ng/ml (6.24-137)
[2023-10-14 15:24] VITALS: BP 147/78
--- NOTE | 2023-10-14 16:30 | CM ---
Patient has out of state Medicaid and no PCP. Not eligible for HH services. Attending aware.
--- NOTE | 2023-10-14 17:00 | W.DS.TRANS ---
DC Summary - Outpatient Pharmacy Manager
-
Discharge Instructions:
Discharge Diagnosis/Procedures Large complex left adnexal ovarian cystic/solid
mass status post robotic TLH LSO and right ovary
cystectomy on OCTOBER 12, 2023
Presentation with Abdominal Pain
Hypokalemia
Microcytic Anemia -- Concern for Iron Deficiency
Anemia
Hematuria on Hospital urinalysis
Results on 10/10/23 for Pelvic and Abdominal
MRI, as per radiologist's report:
'IMPRESSION:
ABDOMEN MRI:
1. MODERATE LEFT HYDROURETERONEPHROSIS
secondary to a distal left ureteral obstruction
caused by a large left adnexal mass.
2. Mild retroperitoneal lymphadenopathy.
3. Small hiatal hernia.
4. Mild hepatomegaly.
5. Previous cholecystectomy.
PELVIS MRI:
1. LARGE 9.8 cm CENTRALLY CYSTIC LEFT ADNEXAL
MASS with a thick surrounding enhancing soft
tissue rim. Diagnostic possibilities are (1) a
LARGE LEFT OVARIAN ENDOMETRIOMA, (2) a left tubo
-ovarian abscess, or (3) a left ovarian
epithelial neoplasm.
2. 6 cm septated cyst in the right ovary.
3. Small amount of peritoneal fluid in the
pelvis.
4. Mild pelvic and retroperitoneal
lymphadenopathy.
5. Complex nabothian cysts in the cervix.'
Pelvis Ultrasound results on 10/09/23, as per
radiologist's report:
'IMPRESSION:
Large left ovarian mass measuring 9.1 x 9.8 x 8.
1 cm, with complex cystic and/or solid appearing
components. Neoplasm to be excluded. Left
ovarian blood flow documented without evidence
to suggest torsion at this time.
Complex cyst of the right ovary measuring up to
5.7 cm. Right ovarian blood flow documented.
No free pelvic fluid.'
CT Abdomen/Pelvis results on 10/09/23, as per
radiologist's report:
'IMPRESSION:
=Large complex left adnexal mass, likely ovarian
in nature. Differential includes tubo-ovarian
abscess, ovarian torsion, or ovarian neoplasm. -
Ectopic less likely, though not
entirely excluded. Findings suspicious for
adjacent left pelvic sidewall adenopathy.
-Left adnexal mass appears to compress the
traversing left lateral pelvic ureter, with mild
obstructive uropathy.
-5.3 cm right ovarian cyst with thin internal
septation.
-There appears to be fluid distention within the
vaginal canal, and possible slight prolapse of
the cervix.
-Constipation with mild colonic fecal burden. No
bowel obstruction.
-2 tiny pulmonary nodules in the left lower lobe
measuring 2.4 mm and 2.8 millimeters. Recommend
nonemergent complete chest CT examination for
further evaluation.
-Nonspecific 1 cm low-attenuation intrahepatic
space-occupying lesion which cannot be further
characterized.'
Diet As tolerated
Activity As tolerated
Driving Restrictions Not until seen by your Dr
Instructions:
Stand-Alone Forms:
Changes to Home Medications: Yes
Discharge Medications:
DC Medications w/original date entered in [employer]
mupirocin 2 % topical ointment 1 applic topical TID Infection 10/11/23
prednisone 10 mg tablet 10 mg PO .TAPER Anti-Inflammatory 10/11/23
acetaminophen 500 mg tablet (Tylenol Extra Strength) 1,000 mg (2 x 500 mg) PO Q6 #20 tabs 10/14/23
amoxicillin 875 mg-potassium clavulanate 125 mg tablet 1 tab PO Q12H #25 tabs 10/14/23
doxycycline hyclate 100 mg tablet 100 mg PO BID #25 tabs 10/14/23
ferrous sulfate 325 mg (65 mg iron) tablet 325 mg PO Q OTHER DAY #14 tabs 10/14/23
ibuprofen 600 mg tablet 600 mg PO Q6 #10 tabs 10/14/23
polyethylene glycol 3350 17 gram oral powder packet (HealthyLax) 17 g PO DAILY #14 ea 10/14/23
sennosides 8.6 mg-docusate sodium 50 mg tablet (Stool Softener-Laxative) 1 tab PO BID #30 tabs 10/14/23
Home Medication Changes
Tylenol, Ibuprofen, Amoxicillin-Clavulanate, Doxycycline, Ferrous Sulfate, HealthyLax and Sennoside-Docusate are new medications
Pending Results: Yes
Additional Pending Results:
Microbiology and Pathology results
Total time spent discharging patient (in min): 40
--- NOTE | 2023-10-14 17:09 | CM ---
Patient has been medically cleared for discharge with no additional skilled services. Out of State Medicaid and no PCP, not eligible for HH services. Patient has arranged for transport home.
--- NOTE | 2023-10-15 17:20 | W.DCSUMMARY ---
Discharge Summary
Discharge Data
Date of Admission: 10/09/23
Date of Discharge: 10/14/23
Total time spent discharging patient (in min): 40
-
Pending Results: Yes
Additional Pending Results:
Microbiology and Pathology results
Hospital Course
43 y/o female with past medical history of menorrhagia, anemia associated with history of heavy periods and constipation presented with acute left lower quadrant abdominal pain. Patient was recently hospitalized at a hospital in [place] in early
September where she got 3 units of blood transfusion and iron transfusion for hemoglobin of 5 - she stated that after the transfusion her hemoglobin was around 8. Patient was found to have left hydroureteronephrosis likely secondary to left ovarian mass,
therefore urology was consulted but recommended no genitourinary intervention - no role for left JJ stent placement as patient was afebrile, comfortable and obstruction appeared to be incomplete. Gynecology was consulted and patient had an exam
under anesthesia, dilation and curettage on October 10, 2023. [employer] Manager Onc was consulted and they recommended definitive management with surgery for patient's left adnexal mass. Antibiotics for a possible urinary tract infection was started but later it was
determined patient does not really have a urinary tract infection therefore antibiotics stopped. Patient had surgery on October 12, 2023, and operative findings, as per surgeon's report included 'left ovary with suspected tubo-ovarian abscess, also has
endometrioma and hemorrhagic features. Uterus is enlarged, there is a rind of inflammatory tissue along the left pelvic sidewall, moderate filmy adhesions as a result of inflammatory changes in the pelvis posterior and anterior to the uterus.
Significant adhesions between sigmoid colon and left tube and ovary, right ovary with 2 simple cysts.' Due to suspected abscess, antibiotics were started and infectious disease was consulted, and patient was discharged on oral antibiotics.
Discharge Plan
-
Patient Disposition: Home (Routine Discharge)
Discharge Diagnosis/Procedures: Large complex left adnexal ovarian cystic/solid mass status post robotic TLH LSO and right ovary cystectomy on OCTOBER 12, 2023
Presentation with Abdominal Pain
Hypokalemia
Microcytic Anemia -- Concern for Iron Deficiency Anemia
Hematuria on Hospital urinalysis
Results on 10/10/23 for Pelvic and Abdominal MRI, as per radiologist's report:
'IMPRESSION:
ABDOMEN MRI:
1. MODERATE LEFT HYDROURETERONEPHROSIS secondary to a distal left ureteral obstruction caused by a large left adnexal mass.
2. Mild retroperitoneal lymphadenopathy.
3. Small hiatal hernia.
4. Mild hepatomegaly.
5. Previous cholecystectomy.
PELVIS MRI:
1. LARGE 9.8 cm CENTRALLY CYSTIC LEFT ADNEXAL MASS with a thick surrounding enhancing soft tissue rim. Diagnostic possibilities are (1) a LARGE LEFT OVARIAN ENDOMETRIOMA, (2) a left tubo-ovarian abscess, or (3) a left ovarian epithelial neoplasm.
2. 6 cm septated cyst in the right ovary.
3. Small amount of peritoneal fluid in the pelvis.
4. Mild pelvic and retroperitoneal lymphadenopathy.
5. Complex nabothian cysts in the cervix.'
Pelvis Ultrasound results on 10/09/23, as per radiologist's report:
'IMPRESSION:
Large left ovarian mass measuring 9.1 x 9.8 x 8.1 cm, with complex cystic and/or solid appearing components. Neoplasm to be excluded. Left ovarian blood flow documented without evidence to suggest torsion at this time.
Complex cyst of the right ovary measuring up to 5.7 cm. Right ovarian blood flow documented.
No free pelvic fluid.'
CT Abdomen/Pelvis results on 10/09/23, as per radiologist's report:
'IMPRESSION:
-Large complex left adnexal mass, likely ovarian in nature. Differential includes tubo-ovarian abscess, ovarian torsion, or ovarian neoplasm. -Ectopic less likely, though not entirely excluded. Findings suspicious for adjacent left pelvic
sidewall adenopathy.
-Left adnexal mass appears to compress the traversing left lateral pelvic ureter, with mild obstructive uropathy.
-5.3 cm right ovarian cyst with thin internal septation.
-There appears to be fluid distention within the vaginal canal, and possible slight prolapse of the cervix.
-Constipation with mild colonic fecal burden. No bowel obstruction.
-2 tiny pulmonary nodules in the left lower lobe measuring 2.4 mm and 2.8 millimeters. Recommend nonemergent complete chest CT examination for further evaluation.
-Nonspecific 1 cm low-attenuation intrahepatic space-occupying lesion which cannot be further characterized.'
Condition: Fair
Diet: As tolerated
Activity: As tolerated
Driving Restrictions: Not until seen by your Dr
Activity Restrictions/Additional Instructions:
You need to follow-up with all the doctors/specialist doctors whose referrals were placed at the time of discharge.
It is extremely important that you establish care with a primary care provider and bring all your records (including imaging results and documents from your hospitalization here) and give them to a primary care provider.
You need to follow-up with your surgeon Dr. Shields.
You will also need repeat lab-work CBC and BMP outpatient within 1 to 2 weeks with an outpatient doctor's office.
Return to the emergency room if you feel dizzy, have bleeding, chest pain, no improvement or worsening of abdominal pain or any other symptoms.
Referrals:
Yuniel Mccoy MD [Active] - in two to four weeks (Hospital follow-up; hematuria on urinalysis)
Carrie Rodriguez DO [Active] - in one to two weeks (Pulmonary nodules on hospital imaging, needs follow-up CT Chest, hospital follow-up)
Marissa Rojas MD [Active] - in two to four weeks (Pelvic and retroperitoneal lymphadenopathy on hospital imaging in September 2023)
NONE,* [Family Provider] -
Kay Garber MD [Active] - in two to three weeks (Hospital follow-up; intrahepatic lesion on imaging done in September 2023 hospitalization)
Jeovany Shields MD [Active] - in one to two weeks (Hospital Follow-up)
Additional Discharge Medication Instructions: Tylenol, Ibuprofen, Amoxicillin-Clavulanate, Doxycycline, Ferrous Sulfate, HealthyLax and Sennoside-Docusate are new medications
Prescriptions:
New
ferrous sulfate 325 mg (65 mg iron) tablet
325 mg PO Q OTHER DAY Qty: 14 0RF
doxycycline hyclate 100 mg tablet
100 mg PO BID Qty: 25 0RF
amoxicillin-pot clavulanate 875-125 mg tablet
1 tab PO Q12H Qty: 25 0RF
ibuprofen 600 mg Tablet
600 mg PO Q6 Qty: 10 0RF
sennosides-docusate sodium [Stool Softener-Laxative] 8.6-50 mg Tablet
1 tab PO BID Qty: 30 0RF
acetaminophen [Tylenol Extra Strength] 500 mg Tablet
1,000 mg PO Q6 Qty: 20 0RF
polyethylene glycol 3350 [HealthyLax] 17 gram powder in packet
17 g PO DAILY Qty: 14 0RF
Continued
mupirocin 1 APPLIC ointment
1 applic topical TID
Held
prednisone 10 MG tablet
10 mg PO .TAPER
Hold Instructions: Resume on 11/04/23. Discuss with your provider who prescribed this to you whether or not you should continue this medication.
Rx Instructions:
Take 40mg daily x3days, 30mg daily x3days,
20mg daily x3days, 10mg daily x3days.
Discharge Orders:
Discharge Patient (As Directed); Ordered 10/14/23
Ordered By: Joseph Walter
Discharge Date and Time
Discharge Date/Time: 10/14/23 17:46
Print Language: TRINIDADIAN
--- NOTE | 2023-10-16 06:45 | PN.CDI ---
CDI
- -
CDI:
Physician Documentation Request
Admit Date: 10/09/23 23:39
Dear Doctor Jose Angel,
Please review the following and provide your response in the progress notes.
Clinical Indicators:
H+P, 10/08
# Acute on chronic microcytic anemia secondary to menorrhagia
Operative report, 10/11
Estimated blood loss 250 cc
PN, 10/13
Microcytic Anemia
-Worsened to Hgb of 8 on 10/14/23
Laboratory Tests
10/09/23 10/09/23 10/10/23
12:26 21:30 05:59
Hgb 9.5 L 7.5 L D 8.5 L
10/11/23 10/12/23 10/12/23
10:35 10:36 19:20
Hgb 8.8 L 9.6 L 9.4 L
10/13/23 10/14/23
06:35 08:53
Hgb 9.1 L 8.0 L
10/10 Transfused 1 unit PRBCs
Based on the above and your clinical assessment, please clarify which of the following is the most likely type of anemia evaluated, monitored and/or treated?
Acute blood loss anemia with baseline chronic microcytic anemia
Anemia of chronic disease secondary to menorrhagia, other , etc.
Other(please specify)
Use of terms such as suspected, likely, concern for, or probable (associated with a specific diagnosis that is being evaluated, monitored, or treated as if it exists) are acceptable and can be coded in the inpatient setting, when documented at the
time of discharge.
Thank you,
Kiesha Sifuentes RN BSN CCDS
CDI Specialist
please contact via tiger text
Please use your independent medical judgment in providing your response.
== END 2023-10-14 17:46 | disposition home or self-care (01) | DRG 742 ==
LOC: 2 SOUTH 23:39
PROVIDERS: Nurse Practitioner; Obstetrics & Gynecology; Obstetrics & Gynecology Gynecologic Oncology; Student in an Organized Health Care Education/Training Program; Surgery; ADMITTING PHYSICIAN Hospitalist; ATTENDING PHYSICIAN Hospitalist; CONSULT PHYSICIAN Internal Medicine Infectious Disease; CONSULT PHYSICIAN Obstetrics & Gynecology; CONSULT PHYSICIAN Specialist; EMERGENCY PHYSICIAN Student in an Organized Health Care Education/Training Program
PROC: 0UDB7ZX Extraction of Endometrium, Via Natural or Artificial Opening, Diagnostic (ICD-10-PCS; 2023-10-10)
PROC: 30233N1 Transfusion of Nonautologous Red Blood Cells into Peripheral Vein, Percutaneous Approach (ICD-10-PCS; 2023-10-11)
PROC: 0UT74ZZ Resection of Bilateral Fallopian Tubes, Percutaneous Endoscopic Approach (ICD-10-PCS; 2023-10-12)
PROC: 8E0W4CZ Robotic Assisted Procedure of Trunk Region, Percutaneous Endoscopic Approach (ICD-10-PCS; 2023-10-12)
PROC: 0UB04ZZ Excision of Right Ovary, Percutaneous Endoscopic Approach (ICD-10-PCS; 2023-10-12)
PROC: 0UT94ZZ Resection of Uterus, Percutaneous Endoscopic Approach (ICD-10-PCS; 2023-10-12)
PROC: 0WBH4ZX Excision of Retroperitoneum, Percutaneous Endoscopic Approach, Diagnostic (ICD-10-PCS; 2023-10-12)
PROC: 0UT14ZZ Resection of Left Ovary, Percutaneous Endoscopic Approach (ICD-10-PCS; 2023-10-12)
PROC: 0TJB8ZZ Inspection of Bladder, Via Natural or Artificial Opening Endoscopic (ICD-10-PCS; 2023-10-12)
DX: N80.122 Deep endometriosis of left ovary (principal); N13.1 Hydronephrosis with ureteral stricture, not elsewhere classified; Z68.41 Body mass index [BMI] 40.0-44.9, adult; N70.03 Acute salpingitis and oophoritis; N92.0 Excessive and frequent menstruation with regular cycle; K59.00 Constipation, unspecified; E66.01 Morbid (severe) obesity due to excess calories; D50.0 Iron deficiency anemia secondary to blood loss (chronic); R59.0 Localized enlarged lymph nodes; D72.829 Elevated white blood cell count, unspecified; K44.9 Diaphragmatic hernia without obstruction or gangrene; R16.0 Hepatomegaly, not elsewhere classified; N83.291 Other ovarian cyst, right side; E87.6 Hypokalemia
CPT/HCPCS: 88305; 88307; 88332; 72197; 74022; 74177; 74183; 76856; 80048; 80053; 81003; 81015; 82378; 82607; 82728; 82746; 83036; 83540; 83550; 83690; 83735; 84703; 85025; 85027; 85610; 85730; 86301; 86304; 86850; 86900; 86901; 86920; 87070; 87075; 87086; 87205; 88112; 88329; 88331; 88341; 88342; 88360; 93005; 96361; 96365; 96375; 97162; 97166; 99285; A9575; G0123; P9016; Q9967